=== PATIENT | female | born 1955 | race Caucasian/White ===

== ENCOUNTER → 2016-08-11 | Outpatient (REF) | payer OTHER ==
[2016-08-11 18:27] LABS: ALBUMIN 4.1 GM/DL (3.2-5.2); ALBUMIN/GLOBULIN RATIO 1.41 (1.00-1.93); ALKALINE PHOSPHATASE 56 U/L (45-117); ALT/SGPT 29 U/L (12-78); ANION GAP 6 MEQ/L (8-16); AST/SGOT 25 U/L (15-37); BILIRUBIN,TOTAL 0.3 MG/DL (0.2-1.0); BLOOD UREA NITROGEN 20 MG/DL (7-18); CALCIUM LEVEL 9.6 MG/DL (8.8-10.2); CARBON DIOXIDE LEVEL 35 MEQ/L (21-32); CHLORIDE LEVEL 102 MEQ/L (98-107); CREATININE FOR GFR 0.85 MG/DL (0.55-1.02); GLOMERULAR FILTRATION RATE > 60.0 (>45); GLUCOSE, FASTING 88 MG/DL (80-110); POTASSIUM SERUM 3.5 MEQ/L (3.5-5.1); SODIUM LEVEL 143 MEQ/L (136-145)
== END ==
LOC: M SFHCPLAZ 15:34
PROVIDERS: ATTEND Family Medicine
DX: E78.2 Mixed hyperlipidemia (principal); I10 Essential (primary) hypertension; R73.01 Impaired fasting glucose

== ENCOUNTER → 2016-12-22 | Outpatient (REF) | payer OTHER ==
[2016-12-22 17:26] LABS: ALBUMIN 4.1 GM/DL (3.2-5.2); ALBUMIN/GLOBULIN RATIO 1.32 (1.00-1.93); ALKALINE PHOSPHATASE 60 U/L (45-117); ALT/SGPT 34 U/L (12-78); ANION GAP 8 MEQ/L (8-16); AST/SGOT 33 U/L (15-37); BILIRUBIN,TOTAL 0.3 MG/DL (0.2-1.0); BLOOD UREA NITROGEN 22 MG/DL (7-18); CALCIUM LEVEL 9.7 MG/DL (8.8-10.2); CARBON DIOXIDE LEVEL 32 MEQ/L (21-32); CHLORIDE LEVEL 100 MEQ/L (98-107); CHOLESTEROL LEVEL 208 MG/DL (<200); GLOMERULAR FILTRATION RATE > 60.0 (>45); GLUCOSE, FASTING 81 MG/DL (80-110); MAGNESIUM LEVEL 2.1 MG/DL (1.8-2.4); POTASSIUM SERUM 3.4 MEQ/L (3.5-5.1); SODIUM LEVEL 140 MEQ/L (136-145); TOTAL PROTEIN 7.2 GM/DL (6.4-8.2); TRIGLYCERIDES LEVEL 282 MG/DL (<150)
== END ==
LOC: M LABDRAW1 16:19
PROVIDERS: ATTEND Family Medicine
DX: E78.2 Mixed hyperlipidemia (principal); R73.01 Impaired fasting glucose

== ENCOUNTER → 2017-01-09 | Outpatient (CLI) | payer OTHER | LOC: M WHC 14:52 | PROVIDERS: ATTEND Family Medicine | DX: Z12.31 Encounter for screening mammogram for malignant neoplasm of breast (principal) ==

== ENCOUNTER → 2017-03-20 | Outpatient (CLI) | payer OTHER ==
[~2017-03-20] MED LIST: ALEN70TA39 PO; HYDR25TAB PO; METO50TA7 PO; NAPR500T PO; SIMV40TA2 PO
--- NOTE | 2017-03-20 20:50 | REP ---
Clinical: Plantar fascial fibromatosis and pain. Technique: AP, lateral, bilateral oblique views left foot. Findings: Mild/moderate osteopenia and age-related changes are appreciated. The osseous structures and joint spaces are intact and otherwise normal. There is no evidence for acute fracture or dislocation. Surrounding soft tissues are unremarkable. No soft tissue calcifications are appreciated. Lateral view without evidence for plantar swelling or obvious abnormality by radiographic evaluation. No subcutaneous emphysema or radiodense foreign body. Impression: Osteopenia and age-related changes. No acute fracture or dislocation. Signed by Berto Javier MD 03/20/2017 08:41 P
== END ==
LOC: M RAD 03-17 14:45
PROVIDERS: ATTEND Family Medicine
DX: M72.2 Plantar fascial fibromatosis (principal); M85.80 Other specified disorders of bone density and structure, unspecified site

== ENCOUNTER 2017-04-20 14:29 | Outpatient (RCR) | payer OTHER | END 2017-04-22 | LOC: M PT 14:29 | PROVIDERS: ATTEND Family Medicine | DX: Z51.89 Encounter for other specified aftercare (principal); M72.2 Plantar fascial fibromatosis ==

== ENCOUNTER 2017-04-26 14:33 | Outpatient (RCR) | payer OTHER ==
[2017-05-07] MEDS ORDERED: SIMV40TA2 PO (09:07)
[2017-05-07] MEDS ORDERED: HYDR25TAB PO (09:07)
[2017-05-07] MEDS ORDERED: METO50TA7 PO (09:07)
[2017-05-07] MEDS ORDERED: ALEN70TA39 PO (09:07)
[2017-05-07] MEDS ORDERED: NAPR500T PO (12:30)
== END 2017-05-23 ==
LOC: M PT 14:33
PROVIDERS: ATTEND Family Medicine
DX: Z51.89 Encounter for other specified aftercare (principal); M72.2 Plantar fascial fibromatosis

== ENCOUNTER 2017-05-07 09:00 | Emergency (ER) | payer OTHER ==
[~2017-05-07] VITALS: Ht 152.4 cm; Wt 64.5 kg
[2017-05-07] MEDS ORDERED: HYDR25TAB PO (09:07)
[2017-05-07] MEDS ORDERED: ALEN70TA39 PO (09:07)
[2017-05-07] MEDS ORDERED: SIMV40TA2 PO (09:07)
[2017-05-07] MEDS ORDERED: METO50TA7 PO (09:07)
--- NOTE | 2017-05-07 11:32 | REP ---
Right foot series: Four views. History: Fourth and fifth metatarsal pain 1 day after an injury. Findings: There is diffuse osteopenia. There is no visible fracture. Mild dorsal soft tissue swelling of the forefoot is seen. Achilles and plantar calcaneal spurs are noted. Impression: Mild soft tissue swelling. No fracture seen. Signed by Fish Reinoso MD 05/07/2017 01:22 P
[2017-05-07] MEDS ORDERED: NAPR500T PO (12:30)
[2017-05-07 12:34] VITALS: BP 178/87
[2017-05-07] MEDS: NAPROXEN 250 MG TAB PO ONE (12:43)
== END 2017-05-07 12:46 | disposition home or self-care (01) ==
LOC: M ED 09:00
DX: S90.31XA Contusion of right foot, initial encounter (principal); X50.1XXA Overexertion from prolonged static or awkward postures, initial encounter; Y92.099 Unspecified place in other non-institutional residence as the place of occurrence of the external cause; Y93.01 Activity, walking, marching and hiking; Y99.9 Unspecified external cause status

== ENCOUNTER → 2017-05-10 | Outpatient (CLI) | payer OTHER ==
--- NOTE | 2017-05-15 17:42 | SLEEPHOME ---
DATE OF PROCEDURE: 05/10/2017 Diagnostic home sleep testing was performed due to concern for the obstructive sleep apnea syndrome in this patient with a history of hypertension. 4 hours and 9 minutes of data were reviewed. There were 4 hours and 7 minutes marked as time in bed. During the interval marked time in bed there were 25 respiratory events identified of 10 seconds in duration or greater for a respiratory event index of 6. The events were primary obstructive. Baseline pulse rate was 59 beats per minutes. Pulse rate ranged as high as 124 beats per minute. Baseline oxygen saturation was 93%. Lowest oxygen saturation recorded was 83%. Testing was performed in both the supine and non-supine positions. IMPRESSION: Abnormal home sleep testing with repetitive respiratory events and oxygen desaturations to 83% with a respiratory event index of 6 which is consistent with the obstructive sleep apnea syndrome. RECOMMENDATIONS: Patient should be referred for formal sleep evaluation and in laboratory pressure titration.
== END ==
LOC: M SLEEP 14:35
PROVIDERS: ATTEND Family Medicine
DX: G47.10 Hypersomnia, unspecified (principal)

== ENCOUNTER 2017-10-16 22:15 | Emergency (ER) | payer OTHER ==
[2017-10-16 23:25] LABS: BASO % 0.4 % (0.0-1.0); EOS # 0.2 10^3/uL (0.0-0.50); EOS % 2.6 % (0.0-3.0); HEMATOCRIT 40.8 % (36.0-47.0); IMMATURE GRANULOCYTE % 0.1 % (0-3.0); LYMPH # 1.8 10^3/uL (1.5-4.5); LYMPH % 23.6 % (24.0-44.0); MEAN CORPUSCULAR HEMOGLOBIN 29.2 pg (27.0-33.0); MEAN CORPUSCULAR HGB CONC 34.3 g/dl (32.0-36.5); MONO # 0.8 10^3/uL (0.0-0.8); MONO % 10.5 % (0.0-5.0); NEUTROPHILS # 4.8 10^3/uL (1.8-7.7); NEUTROPHILS % 62.8 % (36.0-66.0); PLATELET COUNT, AUTOMATED 232 10^3/uL (150-450); RED CELL DISTRIBUTION WIDTH 12.4 % (11.5-14.5); WHITE BLOOD COUNT 7.6 10^3/uL (4.0-10.0)
[2017-10-16 23:39] LABS: ANION GAP 6 MEQ/L (8-16); BLOOD UREA NITROGEN 13 MG/DL (7-18); CALCIUM LEVEL 9.3 MG/DL (8.8-10.2); CARBON DIOXIDE LEVEL 33 MEQ/L (21-32); CHLORIDE LEVEL 104 MEQ/L (98-107); CK-MB VALUE MASS 7.3 NG/ML (<3.6); CPK CREATINE PHOSPHOKINASE 314 U/L (26-192); CREATININE FOR GFR 0.69 MG/DL (0.55-1.30); GLOMERULAR FILTRATION RATE > 60.0 (>45); GLUCOSE, FASTING 108 MG/DL (70-100); MB/CK RELATIVE INDEX 2.32 (< OR =4); POTASSIUM SERUM 3.2 MEQ/L (3.5-5.1); SODIUM LEVEL 143 MEQ/L (136-145); TROPONIN I 0.03 NG/ML (< 0.10)
[2017-10-16] MEDS: NS 500 ML IV (23:48)
[2017-10-17] MEDS: NS 500 ML IV (00:15)
[2017-10-17] MEDS: POTASSIUM CHLORIDE 10 MEQ SR TABLET PO (01:46)
== END 2017-10-17 02:36 | disposition home or self-care (01) ==
LOC: M ED 10-17 02:36
DX: I95.1 Orthostatic hypotension (principal); E87.6 Hypokalemia; I44.7 Left bundle-branch block, unspecified; I10 Essential (primary) hypertension; E78.5 Hyperlipidemia, unspecified; F41.9 Anxiety disorder, unspecified; K58.9 Irritable bowel syndrome, unspecified; Z79.899 Other long term (current) drug therapy; Z88.5 Allergy status to narcotic agent
CPT/HCPCS: 70450

== ENCOUNTER 2017-12-16 08:20 | Emergency (ER) | payer OTHER ==
[2017-12-16] MEDS: ACETAMINOPHEN TAB 650MG DOSE (2X325MG) PO (10:05)
== END 2017-12-16 10:10 | disposition home or self-care (01) ==
LOC: M ED 08:20
DX: R07.89 Other chest pain (principal); G89.29 Other chronic pain; G47.00 Insomnia, unspecified; I44.7 Left bundle-branch block, unspecified; R00.1 Bradycardia, unspecified; I10 Essential (primary) hypertension; E78.9 Disorder of lipoprotein metabolism, unspecified; K58.9 Irritable bowel syndrome, unspecified; F41.9 Anxiety disorder, unspecified; G47.33 Obstructive sleep apnea (adult) (pediatric); Z88.5 Allergy status to narcotic agent; Z79.899 Other long term (current) drug therapy; Z79.82 Long term (current) use of aspirin
CPT/HCPCS: 93005

== ENCOUNTER → 2018-01-04 | Outpatient (REF) | payer OTHER ==
[2018-01-04 12:03] LABS: ALBUMIN/GLOBULIN RATIO 1.25 (1.00-1.93); ALKALINE PHOSPHATASE 82 U/L (45-117); ALT/SGPT 31 U/L (12-78); ANION GAP 6 MEQ/L (8-16); AST/SGOT 24 U/L (7-37); BILIRUBIN,TOTAL 0.5 MG/DL (0.2-1.0); BLOOD UREA NITROGEN 15 MG/DL (7-18); CALCIUM LEVEL 9.5 MG/DL (8.8-10.2); CARBON DIOXIDE LEVEL 33 MEQ/L (21-32); CHLORIDE LEVEL 107 MEQ/L (98-107); CHOLESTEROL LEVEL 172 MG/DL (<200); CHOLESTEROL RISK RATIO 3.583 (<5); CREATININE FOR GFR 0.66 MG/DL (0.55-1.30); GLOMERULAR FILTRATION RATE > 60.0 (>45); GLUCOSE, FASTING 76 MG/DL (70-100); HDL CHOLESTEROL 48 MG/DL (>40); LDL CHOLESTEROL 71.6 MG/DL (<100); MAGNESIUM LEVEL 2.2 MG/DL (1.8-2.4); NON-HDL-C 124 MG/DL; POTASSIUM SERUM 4.2 MEQ/L (3.5-5.1); SODIUM LEVEL 146 MEQ/L (136-145); TOTAL PROTEIN 7.2 GM/DL (6.4-8.2); TRIGLYCERIDES LEVEL 262 MG/DL (<150)
[2018-01-04 13:08] LABS: ESTIMATED AVERAGE GLUCOSE 114 MG/DL (60-110); HEMOGLOBIN A1c 5.6 %
[2018-01-06 14:10] LABS: INSULIN LEVEL 14.6 uIU/mL (2.6-24.9)
== END ==
LOC: M SFHCPLAZ 08:24
DX: E78.2 Mixed hyperlipidemia (principal); R73.01 Impaired fasting glucose
CPT/HCPCS: 83525

== ENCOUNTER → 2018-01-10 | Outpatient (CLI) | payer OTHER | LOC: M WHC 13:28 | DX: Z12.31 Encounter for screening mammogram for malignant neoplasm of breast (principal) | CPT/HCPCS: 77067 ==

== ENCOUNTER → 2018-03-06 | Outpatient (REF) | payer OTHER ==
[2018-03-06 16:08] LABS: BASO % 0.5 % (0.0-1.0); EOS # 0.2 10^3/uL (0.0-0.50); EOS % 3.6 % (0.0-3.0); HEMATOCRIT 41.6 % (36.0-47.0); HEMOGLOBIN 13.8 g/dl (12.0-15.5); IMMATURE GRANULOCYTE % 0.3 % (0-3.0); LYMPH # 1.5 10^3/uL (1.5-4.5); LYMPH % 25.1 % (24.0-44.0); MEAN CORPUSCULAR HEMOGLOBIN 30.3 pg (27.0-33.0); MEAN CORPUSCULAR HGB CONC 33.2 g/dl (32.0-36.5); MEAN CORPUSCULAR VOLUME 91.2 fl (80.0-96.0); MONO # 0.5 10^3/uL (0.0-0.8); MONO % 8.1 % (0.0-5.0); NEUTROPHILS # 3.7 10^3/uL (1.8-7.7); NEUTROPHILS % 62.4 % (36.0-66.0); PLATELET COUNT, AUTOMATED 329 10^3/uL (150-450); RED BLOOD COUNT 4.56 10^6/uL (4.00-5.40); RED CELL DISTRIBUTION WIDTH 12.2 % (11.5-14.5); WHITE BLOOD COUNT 5.9 10^3/uL (4.0-10.0)
[2018-03-06 16:23] LABS: INR 1.03; PROTHROMBIN TIME 13.6 SECONDS (12.1-14.4)
[2018-03-06 16:24] LABS: PARTIAL THROMBOPLASTIN TIME 34.3 SECONDS (25.4-37.6)
[2018-03-06 16:34] LABS: ALBUMIN 3.8 GM/DL (3.2-5.2); ALBUMIN/GLOBULIN RATIO 1.19 (1.00-1.93); ALKALINE PHOSPHATASE 78 U/L (45-117); ALT/SGPT 32 U/L (12-78); ANION GAP 5 MEQ/L (8-16); AST/SGOT 23 U/L (7-37); BILIRUBIN,TOTAL 0.4 MG/DL (0.2-1.0); BLOOD UREA NITROGEN 13 MG/DL (7-18); CALCIUM LEVEL 9.4 MG/DL (8.8-10.2); CARBON DIOXIDE LEVEL 32 MEQ/L (21-32); CHLORIDE LEVEL 108 MEQ/L (98-107); CREATININE FOR GFR 0.78 MG/DL (0.55-1.30); GLOMERULAR FILTRATION RATE > 60.0 (>45); GLUCOSE, FASTING 105 MG/DL (70-100); POTASSIUM SERUM 4.1 MEQ/L (3.5-5.1); SODIUM LEVEL 145 MEQ/L (136-145)
== END ==
LOC: M SFHCPLAZ 14:16
DX: Z01.818 Encounter for other preprocedural examination (principal)

== ENCOUNTER 2018-03-13 08:25 | Day surgery (SDC) | payer OTHER ==
[~2018-03-13 08:25] MED LIST changes: +ACETAMINOPHEN 325 MG TAB PO; -ALEN70TA39 PO; -HYDR25TAB PO; +LIDOCAINE 3.5 % 1ML OPHTH TOPICAL GEL OU; -METO50TA7 PO; -NAPR500T PO; +PHENYLEPHRINE HCL 10 % OPHTH. SOL 5ML OD; -SIMV40TA2 PO
[2018-03-13] MEDS: CYCLOPENTOLATE 2% OPHTH SOLN 2ML BTL OD (08:59)
[2018-03-13] MEDS: TROPICAMIDE 1% OPHTH SOLN 2ML OD (08:59)
[2018-03-13] MEDS: PHENYLEPHRINE 2.5% OPHTH SOL 2ML OD (08:59)
[2018-03-13] MEDS: OFLOXACIN 0.3 % (OCUFLOX) OPTH SOL 5ML OD (09:00)
[2018-03-13] MEDS ORDERED: fentaNYL 100 MCG/2 ML INJECTION (J3010) As Ordered (10:22)
[2018-03-13] MEDS ORDERED: MIDAZOLAM INJ 2 MG/2 ML VIAL (J2250) As Ordered (10:22)
[2018-03-13] MEDS: POVIDONE-IODINE 5% OPHTH PREP SOL 30ML As Ordered (10:24)
[2018-03-13] MEDS: LIDOCAINE 1% SDV 5 ML VIAL As Ordered (10:24)
[2018-03-13] MEDS: HEALON DUET (HEALON 10MG/ML 0.55ML & HEALON ENDOCOAT 30MG/ML 0.85ML) As Ordered (10:24)
[2018-03-13] MEDS: CEFUROXIME 1MG/0.1ML INTRACAMERAL INJ As Ordered (10:25)
[2018-03-13] MEDS: BSS with VANC/TOB/EPI for EYE CASES IR (10:25)
[2018-03-13] MEDS: MOXIFLOXACIN IN BSS 0.25MG/0.25ML INTRACAMERAL INJ (OR EYE ONLY)(J2280) As Ordered (10:25)
[2018-03-13] MEDS: TRIAMCINOLONE PRES FR 40 MG/ML 1ML(TRIESENCE)(OR EYE ONLY)(J3300 PER 1MG) As Ordered (10:25)
[2018-03-13] MEDS ORDERED: AcetaZOLAMIDE 500 MG ER CAP As Ordered (10:48)
[2018-03-13] MEDS: AcetaZOLAMIDE 500 MG ER CAP PO (10:50)
[2018-03-13] MEDS ORDERED: TRIMETHOBENZAMIDE 300 MG CAP PO (11:00)
== END 2018-03-13 11:32 | disposition home or self-care (01) ==
LOC: M SDC 08:25
DX: H26.9 Unspecified cataract (principal); I10 Essential (primary) hypertension; E78.00 Pure hypercholesterolemia, unspecified; L40.8 Other psoriasis; G47.30 Sleep apnea, unspecified; M81.0 Age-related osteoporosis without current pathological fracture
CPT/HCPCS: 66984

== ENCOUNTER 2018-07-19 13:44 | Emergency (ER) | payer OTHER ==
[~2018-07-19] VITALS: Ht 149.9 cm; Wt 64.5 kg
[~2018-07-19 13:44] MED LIST changes: -ACETAMINOPHEN 325 MG TAB PO; +ALEN70TA57 PO; +AMLO2.5T2 PO; +ASPI81TA85 PO; +ATOR40TA75 PO; +CALC600T60 PO; +CARV12.5 PO; +HYDR25TAB PO; -LIDOCAINE 3.5 % 1ML OPHTH TOPICAL GEL OU; +METO50TA7 PO; +MULT1CHW39 PO; +NAPR-49 PO; -PHENYLEPHRINE HCL 10 % OPHTH. SOL 5ML OD; +SIMV40TA2 PO; +VITA200016 PO
[2018-07-19] MEDS ORDERED: ACETAMINOPHEN 325 MG TAB PO ONE (14:30)
--- NOTE | 2018-07-19 14:46 | REP ---
Clinical: Acute headache. Comparison: 10/16/2017 . Findings: Age-related atrophy and microvascular ischemic changes are appreciated. The ventricles and sulci are symmetric. Shields-white differentiation is maintained. There is no evidence for acute intracranial hemorrhage, mass/mass effect, pathology or infarction. No extra-axial fluid collection. Calvarium is intact. Paranasal sinuses and mastoid air cells are clear. Impression: Age related atrophy and microvascular ischemic changes. No acute intracranial hemorrhage, infarction, or mass/mass effect. Electronically Signed by Berto Javier MD 07/19/2018 02:37 P
[2018-07-19 14:56] LABS: BILIRUBIN, URINE MANUAL NEGATIVE (NEGATIVE); GLUCOSE, URINE (UA) MANUAL NEGATIVE (NEGATIVE); KETONE, URINE MANUAL NEGATIVE (NEGATIVE); UROBILINOGEN, URINE MANUAL NORMAL (NORMAL)
[2018-07-19 15:09] LABS: BASO % 0.5 % (0.0-1.0); EOS # 0.2 10^3/uL (0.0-0.50); EOS % 3.3 % (0.0-3.0); HEMOGLOBIN 14.4 g/dl (12.0-15.5); LYMPH # 1.5 10^3/uL (1.5-4.5); LYMPH % 23.1 % (24.0-44.0); MEAN CORPUSCULAR HEMOGLOBIN 30.1 pg (27.0-33.0); MEAN CORPUSCULAR HGB CONC 33.5 g/dl (32.0-36.5); MONO # 0.6 10^3/uL (0.0-0.8); MONO % 8.9 % (0.0-5.0); NEUTROPHILS # 4.1 10^3/uL (1.8-7.7); NEUTROPHILS % 63.9 % (36.0-66.0); PLATELET COUNT, AUTOMATED 270 10^3/uL (150-450); RED BLOOD COUNT 4.78 10^6/uL (4.00-5.40); WHITE BLOOD COUNT 6.4 10^3/uL (4.0-10.0)
[2018-07-19 15:43] LABS: BLOOD UREA NITROGEN 19 MG/DL (7-18); CALCIUM LEVEL 9.4 MG/DL (8.8-10.2); CARBON DIOXIDE LEVEL 30 MEQ/L (21-32); CHLORIDE LEVEL 104 MEQ/L (98-107); GLOMERULAR FILTRATION RATE > 60.0 (>45); GLUCOSE, FASTING 98 MG/DL (70-100); POTASSIUM SERUM 3.9 MEQ/L (3.5-5.1); SODIUM LEVEL 141 MEQ/L (136-145)
[2018-07-19 16:25] VITALS: BP 136/66
== END 2018-07-19 16:29 | disposition home or self-care (01) ==
LOC: M ED 13:44
DX: R51 Headache (principal); Z88.5 Allergy status to narcotic agent; Z79.899 Other long term (current) drug therapy; Z79.82 Long term (current) use of aspirin

== ENCOUNTER → 2018-10-10 | Outpatient (CLI) | payer MEDICARE ==
[~2018-10-10] MED LIST changes: -AMLO2.5T2 PO; +AMLO2.5T3 PO; -NAPR-49 PO; +NAPR-50 PO
--- NOTE | 2018-10-11 01:37 | REP ---
Clinical: Medial knee pain. Technique: AP, lateral, bilateral oblique and sunrise views right knee. Findings: The osseous structures and joint spaces are intact and normal. There is no evidence for acute fracture or dislocation. No joint effusion is appreciated. Surrounding soft tissues are unremarkable. No subcutaneous emphysema or radiodense foreign body. Impression: Age-appropriate right knee radiograph series. No acute fracture or dislocation. Electronically Signed by Berto Javier MD 10/11/2018 01:28 A
== END ==
LOC: M WUC 15:21
PROVIDERS: ATTEND Physician Assistant
DX: M25.561 Pain in right knee (principal)

== ENCOUNTER → 2019-01-22 | Outpatient (REF) | payer MEDICARE ==
[~2019-01-22] MED LIST changes: -ALEN70TA57 PO; +ALEN70TA74 PO; +DONE5TAB82 PO; -MULT1CHW39 PO; +MULT200T7 PO; -NAPR-50 PO; +NAPR-837 PO; -SIMV40TA2 PO; +SIMV40TA20 PO
[2019-01-22 13:51] LABS: BASO % 0.6 % (0.0-1.0); EOS # 0.2 10^3/uL (0.0-0.50); HEMATOCRIT 42.8 % (36.0-47.0); HEMOGLOBIN 14.6 g/dl (12.0-15.5); LYMPH # 1.1 10^3/uL (1.5-4.5); MEAN CORPUSCULAR HEMOGLOBIN 30.7 pg (27.0-33.0); MEAN CORPUSCULAR HGB CONC 34.1 g/dl (32.0-36.5); MEAN CORPUSCULAR VOLUME 90.1 fl (80.0-96.0); MONO # 0.5 10^3/uL (0.0-0.8); MONO % 9.6 % (0.0-5.0); NEUTROPHILS # 3.2 10^3/uL (1.8-7.7); NEUTROPHILS % 64.4 % (36.0-66.0); PLATELET COUNT, AUTOMATED 287 10^3/uL (150-450); RED BLOOD COUNT 4.75 10^6/uL (4.00-5.40)
[2019-01-22 14:09] LABS: ERYTHROCYTE SEDIMENTATION RATE 16 mm/hr (0-30)
[2019-01-22 14:29] LABS: PTT LUPUS TYPE ANTICOAG SCREEN 0.9 (0-1.2)
[2019-01-22 14:30] LABS: BLOOD UREA NITROGEN 17 MG/DL (7-18); CALCIUM LEVEL 9.4 MG/DL (8.8-10.2); CARBON DIOXIDE LEVEL 29 MEQ/L (21-32); CHLORIDE LEVEL 105 MEQ/L (98-107); GLOMERULAR FILTRATION RATE > 60.0 (>45); GLUCOSE, FASTING 90 MG/DL (70-100); SODIUM LEVEL 139 MEQ/L (136-145)
[2019-01-22 14:31] LABS: ALT/SGPT 32 U/L (12-78); BILIRUBIN,TOTAL 0.5 MG/DL (0.2-1.0); FOLATE > 24.0 NG/ML (>5.4); RHEUMATOID FACTOR QUANT < 10.0 IU/ML (<15.0); TOTAL PROTEIN 7.2 GM/DL (6.4-8.2); VITAMIN B12 LEVEL 764 PG/ML (247-911)
[2019-01-30 11:14] LABS: ALBUMIN % 60.9 % (55.8-66.1)
[2019-01-30 11:15] LABS: ALBUMIN 4.38 GM/DL (3.29-5.55); ALPHA-1-GLOBULIN % 4.6 % (2.9-4.9); ALPHA-1-GLOBULINS 0.33 GM/DL (0.17-0.41); ALPHA-2-GLOBULINS % 12.5 % (7.1-11.8); BETA-1-GLOBULINS 0.51 GM/DL (0.28-0.60); BETA-1-GLOBULINS % 7.1 % (4.7-7.2); BETA-2-GLOBULINS 0.32 GM/DL (0.19-0.55); BETA-2-GLOBULINS % 4.4 % (3.2-6.5); GAMMA GLOBULIN % 10.5 % (11.1-18.8); GAMMA GLOBULINS 0.76 GM/DL (0.65-1.58)
[2019-01-30 14:29] LABS: ANGIOTENSIN 1 CONVERTING ENZYM 34 U/L (14-82); ANTI DS-DNA AB <1:10 titer (.); ANTINUCLEAR ANTIBODIES DIRECT Negative (Negative); CERULOPLASMIN 27.5 mg/dL (19.0-39.0); COPPER PLASMA 115 ug/dL (72-166); LEAD BLOOD ADULT <1 ug/dL (0-4); Lyme Disease IgG/IgM Antibodie <0.91 ISR (0.00-0.90); Lyme Disease IgM Ab Quantitati <0.80 index (0.00-0.79); MERCURY LEVEL None Detected ug/L (0.0-14.9); SJOGREN'S ANTI SS-A <0.2 AI (0.0-0.9); SJOGREN'S ANTI SS-B <0.2 AI (0.0-0.9); VITAMIN B1 LEVEL WHOLE BLOOD 133.5 nmol/L (66.5-200.0); VITAMIN B6,PYRIDOXAL PHOSPHATE 50.7 ug/L (2.0-32.8); VITAMIN E(ALPHA TOCOPHEROL) 13.6 mg/L (9.0-29.0); VITAMIN E(GAMMA TOCOPHEROL) 1.8 mg/L (0.5-4.9)
== END ==
LOC: M LABNEURO 10:06
PROVIDERS: ATTEND Psychiatry & Neurology Neurology
DX: G31.84 Mild cognitive impairment of uncertain or unknown etiology (principal); Z79.82 Long term (current) use of aspirin; Z79.899 Other long term (current) drug therapy

== ENCOUNTER → 2019-03-01 | Outpatient (REF) | payer MEDICARE ==
[~2019-03-01] MED LIST changes: -DONE5TAB82 PO; +SIMV40TA2 PO; -SIMV40TA20 PO
== END ==
LOC: M LAB REF 12:26
PROVIDERS: ATTEND Physician Assistant
DX: R30.0 Dysuria (principal)

== ENCOUNTER 2019-05-05 13:35 | Emergency (ER) | payer MEDICARE ==
[~2019-05-05] VITALS: Ht 149.9 cm; Wt 62.0 kg
[2019-05-05] MEDS ORDERED: DONE5TAB82 PO (13:47)
[2019-05-05] MEDS ORDERED: ACETAMINOPHEN TAB 650MG DOSE (2X325MG) PO ONE (14:45)
[2019-05-05 15:00] LABS: BASO % 0.4 % (0.0-1.0); EOS # 0.1 10^3/uL (0.0-0.5); EOS % 1.2 % (0.0-3.0); HEMATOCRIT 42.7 % (36.0-47.0); HEMOGLOBIN 14.3 g/dl (12.0-15.5); LYMPH # 0.9 10^3/uL (1.5-5.0); LYMPH % 12.3 % (24.0-44.0); MEAN CORPUSCULAR HEMOGLOBIN 30.4 pg (27.0-33.0); MEAN CORPUSCULAR HGB CONC 33.5 g/dl (32.0-36.5); MEAN CORPUSCULAR VOLUME 90.7 fl (80.0-96.0); MONO # 0.4 10^3/uL (0.0-0.8); MONO % 4.6 % (0.0-5.0); NEUTROPHILS # 6.2 10^3/uL (1.5-8.5); NEUTROPHILS % 81.1 % (36.0-66.0); PLATELET COUNT, AUTOMATED 343 10^3/uL (150-450); RED BLOOD COUNT 4.71 10^6/uL (4.00-5.40); WHITE BLOOD COUNT 7.6 10^3/uL (4.0-10.0)
[2019-05-05 15:25] LABS: BLOOD UREA NITROGEN 12 MG/DL (7-18); CALCIUM LEVEL 9.5 MG/DL (8.8-10.2); CARBON DIOXIDE LEVEL 31 MEQ/L (21-32); CHLORIDE LEVEL 106 MEQ/L (98-107); GLOMERULAR FILTRATION RATE > 60.0 (>45); GLUCOSE, FASTING 111 MG/DL (70-100); POTASSIUM SERUM 4.2 MEQ/L (3.5-5.1); SODIUM LEVEL 143 MEQ/L (136-145)
[2019-05-05 16:56] VITALS: BP 162/84
--- NOTE | 2019-05-06 06:52 | REP ---
REASON FOR EXAM: Headache. COMPARISON: 07/19/2018 There is no significant change from the prior exam. The ventricles and sulci are within normal limits and unchanged. There is no evidence of an acute intracranial hemorrhagic or nonhemorrhagic event. There is no shift of the midline structures. Once again, there is mild patchy diffuse lucency throughout the deep cerebral white matter status quo. There is no change in the appearance of the skull or imaged paranasal sinuses. IMPRESSION: There is no evidence of acute intracranial pathology or significant change compared to the prior exam 07/19/2018. Mild age-related changes status quo. Electronically Signed by Tyrone Henderson DO 05/06/2019 12:45 P
== END 2019-05-05 17:15 | disposition home or self-care (01) ==
LOC: M ED 13:35
DX: R51 Headache (principal); I10 Essential (primary) hypertension; E78.5 Hyperlipidemia, unspecified; F03.90 Unspecified dementia, unspecified severity, without behavioral disturbance, psychotic disturbance, mood disturbance, and anxiety; G47.30 Sleep apnea, unspecified; M81.0 Age-related osteoporosis without current pathological fracture; Z82.3 Family history of stroke; Z79.82 Long term (current) use of aspirin; Z79.899 Other long term (current) drug therapy; Z88.5 Allergy status to narcotic agent

== ENCOUNTER → 2020-04-28 | Outpatient (CLI) | payer MEDICARE ==
[~2020-04-28] MED LIST changes: -ASPI81TA85 PO; +ASPI81TA86 PO; +DONE5TAB82 PO; -SIMV40TA2 PO; +SIMV40TA20 PO
[2020-04-28 11:25] LABS: HEMATOCRIT 41.7 % (36.0-47.0); HEMOGLOBIN 13.3 g/dl (12.0-15.5); MEAN CORPUSCULAR HEMOGLOBIN 28.5 pg (27.0-33.0); MEAN CORPUSCULAR HGB CONC 31.9 g/dl (32.0-36.5); MEAN CORPUSCULAR VOLUME 89.3 fl (80.0-96.0); PLATELET COUNT, AUTOMATED 210 10^3/uL (150-450); RED BLOOD COUNT 4.67 10^6/uL (4.00-5.40); WHITE BLOOD COUNT 4.9 10^3/uL (4.0-10.0)
[2020-04-28 11:46] LABS: ALT/SGPT 33 U/L (12-78); BILIRUBIN,TOTAL 0.8 MG/DL (0.2-1.0); BLOOD UREA NITROGEN 19 MG/DL (7-18); CALCIUM LEVEL 10.2 MG/DL (8.8-10.2); CARBON DIOXIDE LEVEL 33 MEQ/L (21-32); CHLORIDE LEVEL 104 MEQ/L (98-107); CHOLESTEROL LEVEL 176 MG/DL (<200); CREATININE FOR GFR 0.81 MG/DL (0.55-1.30); GLOMERULAR FILTRATION RATE > 60.0 (>45); GLUCOSE, FASTING 97 MG/DL (70-100); HDL CHOLESTEROL 42 MG/DL (>40); LDL CHOLESTEROL 96 MG/DL (<100); NON-HDL-C 134 MG/DL; POTASSIUM SERUM 3.8 MEQ/L (3.5-5.1); SODIUM LEVEL 142 MEQ/L (136-145); TOTAL PROTEIN 7.2 GM/DL (6.4-8.2); TRIGLYCERIDES LEVEL 189 MG/DL (<150)
== END ==
LOC: M WUC 08:12
PROVIDERS: ATTEND Family Medicine
DX: M81.0 Age-related osteoporosis without current pathological fracture (principal); I10 Essential (primary) hypertension

== ENCOUNTER → 2020-06-09 | Outpatient (CLI) | payer MEDICARE ==
--- NOTE | 2020-06-09 15:35 | REPMRS ---
Patient History The patient states she has not had a clinical breast exam in over a year. No known family history of cancer. No Hormone Replacement Therapy 3D TOMOSYNTHESIS WAS PERFORMED. [facility] for [facility] 4.8%. Volpara breast density b. Digital Woman Screen Mammo: June 09, 2020 - Exam #: [id number] Bilateral CC and MLO view(s) were taken. Technologist: Katie Gillette, Technologist Prior study comparison: January 10, 2018, bilateral digital woman screen mammo performed at [facility]. January 09, 2017, digital woman screen mammo performed at [facility]. FINDINGS: There are scattered fibroglandular densities. There has been no change in the appearance of the mammogram from the prior studies. There is a mild amount of residual fibroglandular tissue which is fairly symmetric. There is no interval development of dominant mass, architectural distortion, or clustered microcalcification suggestive of malignancy. Assessment: BI-RADS/ACR category 1 mammogram. Negative Mammogram. Recommendation Routine screening mammogram in 1 year (for women over age 40). This mammogram was interpreted with the aid of an FDA-approved computer-aided dectection system. Electronically Signed By: Giuliano Shields MD 06/09/20 [id number]
== END ==
LOC: M WHC 08:11
PROVIDERS: ATTEND Family Medicine
DX: Z01.419 Encounter for gynecological examination (general) (routine) without abnormal findings (principal); Z12.31 Encounter for screening mammogram for malignant neoplasm of breast
CPT/HCPCS: 77063; 77067; G0101

== ENCOUNTER 2020-06-20 11:47 | Emergency (ER) | payer MEDICARE ==
[~2020-06-20] VITALS: Ht 149.9 cm; Wt 63.3 kg
[2020-06-20] MEDS ORDERED: METOCLOPRAMIDE INJ 10MG/2ML VIAL (J2765 PER 1) IV ONE (12:30)
[2020-06-20] MEDS: METOPROLOL 5 MG/5 ML VIAL IV SCH ×2 (12:40→12:46)
[2020-06-20 12:55] LABS: BASO % 0.5 % (0.0-1.0); EOS # 0.1 10^3/uL (0.0-0.5); EOS % 1.8 % (0.0-3.0); HEMATOCRIT 44.5 % (36.0-47.0); HEMOGLOBIN 14.2 g/dl (12.0-15.5); LYMPH # 1.1 10^3/uL (1.5-5.0); LYMPH % 19.7 % (24.0-44.0); MEAN CORPUSCULAR HEMOGLOBIN 28.5 pg (27.0-33.0); MEAN CORPUSCULAR HGB CONC 31.9 g/dl (32.0-36.5); MEAN CORPUSCULAR VOLUME 89.2 fl (80.0-96.0); MONO # 0.4 10^3/uL (0.0-0.8); MONO % 7.6 % (0.0-5.0); NEUTROPHILS % 69.9 % (36.0-66.0); PLATELET COUNT, AUTOMATED 283 10^3/uL (150-450); RED BLOOD COUNT 4.99 10^6/uL (4.00-5.40); WHITE BLOOD COUNT 5.7 10^3/uL (4.0-10.0)
--- NOTE | 2020-06-20 13:25 | REP ---
INDICATION: Altered Mental Status COMPARISON: 07/19/2018 TECHNIQUE: Axial noncontrast images from the skull base to the thoracic inlet with coronal reformations. This CT examination was performed using the following dose reduction techniques: Automated exposure control, adjustment of mA and/or kv according to the patient's size, and use of iterative reconstruction technique. FINDINGS: Age-related atrophy and microvascular ischemic changes are appreciated. The ventricles and sulci are symmetric. Shields-white differentiation is maintained. There is no evidence for acute intracranial hemorrhage, mass/mass effect, pathology or infarction. No extra-axial fluid collection. Calvarium is intact. Paranasal sinuses and mastoid air cells are clear. IMPRESSION: Age related atrophy and microvascular ischemic changes. No acute intracranial hemorrhage, infarction, or mass/mass effect. <Electronically signed by Berto Javier > 06/20/20 [id number]
[2020-06-20 13:27] LABS: ACETAMINOPHEN LEVEL < 2.0 UG/ML (10.0-30.0); ALBUMIN 4.2 GM/DL (3.2-5.2); ALT/SGPT 30 U/L (12-78); BILIRUBIN,DIRECT 0.1 MG/DL (0.0-0.2); BILIRUBIN,TOTAL 0.4 MG/DL (0.2-1.0); BLOOD UREA NITROGEN 7 MG/DL (7-18); CALCIUM LEVEL 9.7 MG/DL (8.8-10.2); CARBON DIOXIDE LEVEL 30 MEQ/L (21-32); CHLORIDE LEVEL 107 MEQ/L (98-107); CREATININE FOR GFR 0.72 MG/DL (0.55-1.30); ETHYL ALCOHOL (ETHANOL) < 0.003 % (0.000-0.010); GLOMERULAR FILTRATION RATE > 60.0 (>45); GLUCOSE, FASTING 104 MG/DL (70-100); POTASSIUM SERUM 3.8 MEQ/L (3.5-5.1); SALICYLATE LEVEL < 1.7 MG/DL (5.0-30.0); SODIUM LEVEL 142 MEQ/L (136-145); TOTAL PROTEIN 7.5 GM/DL (6.4-8.2)
[2020-06-20] MEDS ORDERED: NIFEdipine 10 MG CAP PO ONE (13:45)
--- NOTE | 2020-06-20 13:54 | ECGEPIP ---
[facility] - ED Test Date: 2020-06-20 Pat Name: OG LYON Department: Room: - Gender: Female Deputy County Attorney: glenda : 1955 Requested By: CEDRICK JOINER Order Number: [id number] Reading MD: Graciela Gomez Measurements Intervals [place] Rate: 52 P: 30 CO: 213 QRS: 43 QRSD: 134 T: 228 QT: 461 QTc: 431 Interpretive Statements SINUS BRADYCARDIA WITH FIRST DEGREE AV BLOCK LEFT BUNDLE BRANCH BLOCK SIMILAR 12/16/17 Electronically Signed on 06-20-2020 13:54:35 EST by Graciela Gomez
[2020-06-20 13:57] VITALS: BP 200/92
[2020-06-20] MEDS ORDERED: KETOROLAC 30 MG/ML 1ML VIAL IV ONE (14:15)
[2020-06-20 14:51] VITALS: BP 133/64
== END 2020-06-20 15:08 | disposition home or self-care (01) ==
LOC: M ED 11:47
DX: R51.9 Headache, unspecified (principal); I10 Essential (primary) hypertension; R00.1 Bradycardia, unspecified; I44.0 Atrioventricular block, first degree; F03.90 Unspecified dementia, unspecified severity, without behavioral disturbance, psychotic disturbance, mood disturbance, and anxiety; G47.33 Obstructive sleep apnea (adult) (pediatric); E78.00 Pure hypercholesterolemia, unspecified; Z88.5 Allergy status to narcotic agent; Z79.899 Other long term (current) drug therapy; Z79.82 Long term (current) use of aspirin
CPT/HCPCS: 70450; 80048; 80076; 81001; 82140; 84443; 85025; 93005; 93041; 94760; 96374; 96375; 99285; G0480; J1885; J2765

== ENCOUNTER 2020-07-07 13:51 | Emergency (ER) | payer MEDICARE ==
[~2020-07-07] VITALS: Ht 149.9 cm; Wt 61.6 kg
[2020-07-07] MEDS ORDERED: QUET5TAB PO (14:16)
[2020-07-07] MEDS ORDERED: MELA3TAB30 PO (14:16)
[2020-07-07] MEDS ORDERED: NYST10CR TOP (14:16)
[2020-07-07] MEDS ORDERED: B-12100010 PO (14:16)
[2020-07-07] MEDS ORDERED: DONE10TA90 PO (14:16)
[2020-07-07] MEDS ORDERED: SERT50TA29 PO (14:16)
[2020-07-07] MEDS ORDERED: KETOROLAC 30 MG/ML 1ML VIAL IV ONE (15:00)
[2020-07-07] MEDS ORDERED: METOCLOPRAMIDE INJ 10MG/2ML VIAL (J2765 PER 1) IV ONE (15:00)
[2020-07-07] MEDS ORDERED: CHLO125TA PO (16:34)
[2020-07-07] MEDS ORDERED: PILL CUTTER 1 EACH XX ONE (16:42)
[2020-07-07] MEDS ORDERED: **hydrALAZINE** 10 MG TAB PO ONE (16:45)
[2020-07-07] MEDS ORDERED: CHLORTHALIDONE 12.5MG PER 1/2 TABLET PO ONE (16:45)
[2020-07-07] MEDS ORDERED: CHLORTHALIDONE 25 MG TAB PO ONE (16:45)
[2020-07-07 16:51] VITALS: BP 224/101
[2020-07-07 17:52] VITALS: BP 155/88
--- NOTE | 2020-07-08 07:44 | ECGEPIP ---
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
== END 2020-07-07 17:53 | disposition home or self-care (01) ==
LOC: M ED 13:51
DX: R51.9 Headache, unspecified (principal); I10 Essential (primary) hypertension; I44.7 Left bundle-branch block, unspecified; Z88.5 Allergy status to narcotic agent
CPT/HCPCS: 93005; 96374; 96375; 99284; J1885; J2765

== ENCOUNTER → 2021-03-23 | Outpatient (CLI) | payer MEDICAID, MEDICARE ==
[~2021-03-23] MED LIST changes: -ALEN70TA74 PO; +ALEN70TA82 PO; +B-12100010 PO; +CHLO125TA PO; +DONE10TA90 PO; +HYDR-3490 PO; -HYDR25TAB PO; +MELA3TAB30 PO; +NYST10CR TOP; +QUET50TA4 PO; +SERT50TA29 PO
[2021-03-23 15:15] LABS: THYROID STIMULATING HORMONE 1.24 uIU/ML (0.358-3.740)
== END ==
LOC: M LAB 13:54
PROVIDERS: ATTEND Internal Medicine Gastroenterology
DX: R19.7 Diarrhea, unspecified (principal)

== ENCOUNTER → 2021-04-17 | Outpatient (REF) | payer MEDICARE | LOC: M LAB REF 19:42 | PROVIDERS: ATTEND Internal Medicine Gastroenterology | DX: R19.7 Diarrhea, unspecified (principal) ==

== ENCOUNTER → 2021-06-10 | Outpatient (CLI) | payer MEDICARE, MEDICAID ==
[~2021-06-10] MED LIST changes: +BAYE81TA10 PO; +CLOB5CR TOP; +FLAX1CAP2 PO; +MEMA1TAB3 PO; +VITA-158 PO; +VITA100017 PO; +VITA200010 PO; +ZOLO100T PO
== END ==
LOC: M WHC 14:16
PROVIDERS: ATTEND Nurse Practitioner Women's Health
DX: Z12.31 Encounter for screening mammogram for malignant neoplasm of breast (principal); Z53.9 Procedure and treatment not carried out, unspecified reason

== ENCOUNTER → 2021-06-16 | Outpatient (CLI) | payer MEDICARE | LOC: M LABSMTC 09:48 | PROVIDERS: ATTEND Anesthesiology | DX: Z01.812 Encounter for preprocedural laboratory examination (principal); Z20.822 Contact with and (suspected) exposure to COVID-19 ==

== ENCOUNTER 2021-06-21 07:18 | Day surgery (SDC) | payer MEDICARE ==
[~2021-06-21] VITALS: Ht 154.9 cm; Wt 59.9 kg
[~2021-06-21 07:18] MED LIST changes: +NS 1,000 ML IV ONE
[2021-06-21] MEDS ORDERED: propofoL 500 MG/50 ML VIAL As Ordered ONE (07:26)
[2021-06-21] MEDS ORDERED: LIDOCAINE 2% 100MG/5ML SDV (FOR ANES.) As Ordered ONE (07:26)
[2021-06-21 10:21] VITALS: BP 137/98
== END 2021-06-21 09:30 | disposition home or self-care (01) ==
LOC: M OPP 07:18
PROVIDERS: ATTEND Internal Medicine Gastroenterology
DX: K63.5 Polyp of colon (principal); K58.0 Irritable bowel syndrome with diarrhea; R19.7 Diarrhea, unspecified; Z79.82 Long term (current) use of aspirin; Z79.899 Other long term (current) drug therapy; Z88.2 Allergy status to sulfonamides; Z88.5 Allergy status to narcotic agent

== ENCOUNTER → 2021-07-12 | Outpatient (CLI) | payer OTHER, MEDICAID, MEDICARE ==
[~2021-07-12] MED LIST changes: -NS 1,000 ML IV ONE
== END ==
LOC: M WHC 12:26
PROVIDERS: ATTEND Nurse Practitioner Women's Health
DX: N63.20 Unspecified lump in the left breast, unspecified quadrant (principal)
CPT/HCPCS: 76642; 77066; G0279

== ENCOUNTER 2021-12-20 16:33 | Emergency (ER) | payer MEDICARE ==
[~2021-12-20] VITALS: Ht 149.9 cm; Wt 64.5 kg
[2021-12-20] MEDS ORDERED: CLOB0.057 (16:44)
[2021-12-20] MEDS ORDERED: KETO2CR (16:44)
[2021-12-20] MEDS ORDERED: NS 1,000 ML IV ONE (17:10)
[2021-12-20 17:31] LABS: BASO % 0.3 % (0.0-1.0); EOS # 0.1 10^3/uL (0.0-0.5); EOS % 1.3 % (0.0-3.0); HEMOGLOBIN 14.4 g/dl (12.0-15.5); LYMPH # 0.7 10^3/uL (1.5-5.0); MEAN CORPUSCULAR HEMOGLOBIN 29.8 pg (27.0-33.0); MEAN CORPUSCULAR HGB CONC 33.5 g/dl (32.0-36.5); MONO # 0.4 10^3/uL (0.0-0.8); NEUTROPHILS # 9.1 10^3/uL (1.5-8.5); NEUTROPHILS % 86.8 % (36.0-66.0); PLATELET COUNT, AUTOMATED 231 10^3/uL (150-450); RED BLOOD COUNT 4.83 10^6/uL (4.00-5.40); WHITE BLOOD COUNT 10.5 10^3/uL (4.0-10.0)
[2021-12-20 18:05] LABS: FREE T4 0.92 NG/DL (0.76-1.46); MAGNESIUM LEVEL 1.9 MG/DL (1.8-2.4); THYROID STIMULATING HORMONE 2.06 uIU/ML (0.358-3.740)
[2021-12-20 20:03] VITALS: BP 197/92
== END 2021-12-20 20:09 | disposition home or self-care (01) ==
LOC: M ED 16:33
DX: S50.312A Abrasion of left elbow, initial encounter (principal); S80.211A Abrasion, right knee, initial encounter; W18.39XA Other fall on same level, initial encounter; R42 Dizziness and giddiness; Y93.H2 Activity, gardening and landscaping; Z79.82 Long term (current) use of aspirin; Z79.899 Other long term (current) drug therapy; Z88.1 Allergy status to other antibiotic agents; Z88.2 Allergy status to sulfonamides; Z88.6 Allergy status to analgesic agent

== ENCOUNTER 2022-06-14 12:28 | Emergency (ER) | payer MEDICARE ==
[~2022-06-14] VITALS: Ht 149.9 cm; Wt 67.8 kg
[~2022-06-14 12:28] MED LIST changes: +CLOB0.057; +KETO2CR; +NYST-13 TOP; -NYST10CR TOP
[2022-06-14] MEDS ORDERED: MEMA10TA19 (13:14)
[2022-06-14] MEDS ORDERED: MACR100C43 PO (17:51)
[2022-06-14 18:11] VITALS: BP 162/84
== END 2022-06-14 18:10 | disposition home or self-care (01) ==
LOC: M ED 12:28
DX: N30.90 Cystitis, unspecified without hematuria (principal); Z88.2 Allergy status to sulfonamides; Z88.1 Allergy status to other antibiotic agents; Z88.5 Allergy status to narcotic agent; Z98.890 Other specified postprocedural states; Z98.49 Cataract extraction status, unspecified eye

== ENCOUNTER 2022-08-10 12:22 | Emergency (ER) | payer MEDICARE ==
[~2022-08-10] VITALS: Ht 152.4 cm; Wt 68.2 kg
[~2022-08-10 12:22] MED LIST changes: +MACR100C43 PO; +MEMA10TA19
[2022-08-10] MEDS ORDERED: ALBU8.5H (15:23)
[2022-08-10] MEDS ORDERED: HYDR-643 (15:23)
[2022-08-10] MEDS ORDERED: CITA20TA7 (15:23)
[2022-08-10] MEDS ORDERED: DUPI300I SC (15:23)
[2022-08-10] MEDS ORDERED: ALEN70TA82 (15:23)
[2022-08-10] MEDS ORDERED: MONT10TA97 (15:23)
[2022-08-10] MEDS ORDERED: NYST1POW9 (15:23)
[2022-08-10] MEDS ORDERED: CALC250T PO (15:25)
[2022-08-10] MEDS ORDERED: META0.52 PO (15:25)
[2022-08-10] MEDS ORDERED: GNP250TA9 PO (15:25)
[2022-08-10] MEDS ORDERED: OMEG10002 PO (15:25)
[2022-08-10 17:15] LABS: BASO % 0.3 % (0.0-1.0); EOS # 0.2 10^3/uL (0.0-0.5); EOS % 3.5 % (0.0-3.0); HEMATOCRIT 41.6 % (36.0-47.0); HEMOGLOBIN 13.5 g/dl (12.0-15.5); LYMPH # 1.4 10^3/uL (1.5-5.0); LYMPH % 21.3 % (24.0-44.0); MEAN CORPUSCULAR HEMOGLOBIN 29.8 pg (27.0-33.0); MEAN CORPUSCULAR HGB CONC 32.5 g/dl (32.0-36.5); MEAN CORPUSCULAR VOLUME 91.8 fl (80.0-96.0); MONO # 0.5 10^3/uL (0.0-0.8); MONO % 7.3 % (2.0-8.0); NEUTROPHILS # 4.4 10^3/uL (1.5-8.5); NEUTROPHILS % 67.3 % (36.0-66.0); PLATELET COUNT, AUTOMATED 242 10^3/uL (150-450); RED BLOOD COUNT 4.53 10^6/uL (4.00-5.40); WHITE BLOOD COUNT 6.5 10^3/uL (4.0-10.0)
[2022-08-10 17:29] VITALS: BP 155/72
== END 2022-08-10 17:30 | disposition home or self-care (01) ==
LOC: M ED 15:32
DX: R60.0 Localized edema (principal); I10 Essential (primary) hypertension; E78.5 Hyperlipidemia, unspecified; R51.9 Headache, unspecified; M81.0 Age-related osteoporosis without current pathological fracture; Z79.82 Long term (current) use of aspirin; Z79.899 Other long term (current) drug therapy; Z88.2 Allergy status to sulfonamides; Z88.5 Allergy status to narcotic agent

== ENCOUNTER → 2022-08-28 | Outpatient (REF) | payer MEDICARE ==
[~2022-08-28] MED LIST changes: +ALBU8.5H; +ALEN70TA82; +CALC250T PO; +CITA20TA7; +DUPI300I SC; +GNP250TA9 PO; +HYDR-643; +META0.52 PO; +MONT10TA97; +NYST1POW9; +OMEG10002 PO
== END ==
LOC: M LAB REF 19:10
PROVIDERS: ATTEND Physician Assistant Medical
DX: N39.0 Urinary tract infection, site not specified (principal)

== ENCOUNTER → 2022-09-16 | Outpatient (CLI) | payer MEDICARE ==
[2022-09-16 11:15] LABS: BASO % 0.7 % (0.0-1.0); EOS # 0.3 10^3/uL (0.0-0.5); EOS % 4.2 % (0.0-3.0); HEMATOCRIT 42.7 % (36.0-47.0); LYMPH # 1.2 10^3/uL (1.5-5.0); LYMPH % 20.1 % (24.0-44.0); MEAN CORPUSCULAR HEMOGLOBIN 29.9 pg (27.0-33.0); MEAN CORPUSCULAR HGB CONC 32.8 g/dl (32.0-36.5); MONO # 0.4 10^3/uL (0.0-0.8); MONO % 6.7 % (2.0-8.0); NEUTROPHILS # 4.2 10^3/uL (1.5-8.5); NEUTROPHILS % 68.1 % (36.0-66.0); PLATELET COUNT, AUTOMATED 243 10^3/uL (150-450); RED BLOOD COUNT 4.69 10^6/uL (4.00-5.40); WHITE BLOOD COUNT 6.1 10^3/uL (4.0-10.0)
[2022-09-16 11:48] LABS: ALBUMIN 3.5 G/DL (3.2-5.2); ALKALINE PHOSPHATASE 99 U/L (46-116); ALT/SGPT 34 U/L (7.0-40); AST/SGOT 24 U/L (<34); BILIRUBIN,TOTAL 0.7 MG/DL (0.3-1.2); BLOOD UREA NITROGEN 13 MG/DL (9-23); CALCIUM LEVEL 9.7 MG/DL (8.3-10.6); CARBON DIOXIDE LEVEL 31 MMOL/L (20-31); CHLORIDE LEVEL 104 MMOL/L (98-107); CHOLESTEROL LEVEL 156 MG/DL (<200); CHOLESTEROL RISK RATIO 3.77 (<5); CREATININE FOR GFR 0.65 MG/DL (0.55-1.30); GLOMERULAR FILTRATION RATE > 60.0 (>45); GLUCOSE, FASTING 86 MG/DL (74-106); HDL CHOLESTEROL 41.3 MG/DL (>40); LDL CHOLESTEROL 88.3 MG/DL (<100); NON-HDL-C 115 MG/DL; POTASSIUM SERUM 4.2 MMOL/L (3.5-5.1); SODIUM LEVEL 142 MMOL/L (136-145); TOTAL 25(OH) VITAMIN D 26.8 NG/ML (20.0-100.0); TOTAL PROTEIN 6.6 G/DL (5.7-8.2); TRIGLYCERIDES LEVEL 132 MG/DL (<150)
== END ==
LOC: M LAB 10:08
PROVIDERS: ATTEND Family Medicine
DX: M81.0 Age-related osteoporosis without current pathological fracture (principal); I10 Essential (primary) hypertension

== ENCOUNTER → 2022-11-14 | Outpatient (CLI) | payer MEDICARE | LOC: M WHC 14:37 | PROVIDERS: ATTEND Nurse Practitioner Family | DX: Z12.31 Encounter for screening mammogram for malignant neoplasm of breast (principal) ==

== ENCOUNTER 2023-03-30 12:52 | Inpatient (IN) | payer MEDICARE, MEDICAID ==
[~2023-03-30 12:52] MED LIST changes: -ALEN70TA82; -CITA20TA7; +CITA20TA7 PO; -HYDR-643; +HYDR-643 PO; -KETO2CR; +KETO2CR TOP; -MEMA10TA19; +MEMA10TA19 PO; -MONT10TA97; +MONT10TA97 PO; -NYST1POW9; +NYST1POW9 TOP
[2023-03-30] MEDS ORDERED: ACETAMINOPHEN TAB 650MG DOSE (2X325MG) PO ONE (13:10)
[2023-03-30] MEDS ORDERED: ACETAMINOPHEN 325MG/10.15ML UDC PO ONE (13:45)
[2023-03-30 14:09] LABS: BASO % 0.3 % (0.0-1.0); EOS % 0.1 % (0.0-3.0); HEMATOCRIT 42.6 % (36.0-47.0); HEMOGLOBIN 14.1 g/dl (12.0-15.5); LYMPH # 0.6 10^3/uL (1.5-5.0); LYMPH % 5.4 % (24.0-44.0); MEAN CORPUSCULAR HEMOGLOBIN 29.4 pg (27.0-33.0); MEAN CORPUSCULAR HGB CONC 33.1 g/dl (32.0-36.5); MEAN CORPUSCULAR VOLUME 88.9 fl (80.0-96.0); MONO # 0.8 10^3/uL (0.0-0.8); MONO % 7.3 % (2.0-8.0); NEUTROPHILS # 9.8 10^3/uL (1.5-8.5); NEUTROPHILS % 86.5 % (36.0-66.0); PLATELET COUNT, AUTOMATED 285 10^3/uL (150-450); RED BLOOD COUNT 4.79 10^6/uL (4.00-5.40); WHITE BLOOD COUNT 11.3 10^3/uL (4.0-10.0)
[2023-03-30 14:11] LABS: ETHYL ALCOHOL (ETHANOL) < 0.003 % (0.000-0.010)
[2023-03-30 14:13] LABS: ALBUMIN 3.7 G/DL (3.2-5.2); ALKALINE PHOSPHATASE 92 U/L (46-116); ALT/SGPT 25 U/L (7.0-40); AST/SGOT 16 U/L (<34); BILIRUBIN,DIRECT 0.3 MG/DL (<0.4); BILIRUBIN,TOTAL 0.9 MG/DL (0.3-1.2); BLOOD UREA NITROGEN 14 MG/DL (9-23); CALCIUM LEVEL 9.3 MG/DL (8.3-10.6); CARBON DIOXIDE LEVEL 26 MMOL/L (20-31); CHLORIDE LEVEL 104 MMOL/L (98-107); CK-MB VALUE MASS < 1.0 NG/ML (<3.6); CPK CREATINE PHOSPHOKINASE 75 U/L (34-145); CREATININE FOR GFR 0.56 MG/DL (0.55-1.30); GLOMERULAR FILTRATION RATE > 60.0 (>45); GLUCOSE, FASTING 115 MG/DL (74-106); MB/CK RELATIVE INDEX 1.33 (< OR =4); SODIUM LEVEL 136 MMOL/L (136-145); TOTAL PROTEIN 7.1 G/DL (5.7-8.2)
[2023-03-30 14:22] LABS: INR 1.06; PROTHROMBIN TIME 13.5 SECONDS (12.5-14.5)
[2023-03-30 14:23] LABS: PARTIAL THROMBOPLASTIN TIME 31.4 SECONDS (24.8-34.2)
[2023-03-30 15:51] LABS: LDH LACTATE DEHYDROGENASE 218 U/L (120-246)
[2023-03-30 15:55] LABS: FERRITIN 87.5 NG/ML (7.3-270.7)
[2023-03-30] MEDS ORDERED: MOM 30ML SUSPENSION UDC PO PRN (16:05)
[2023-03-30] MEDS ORDERED: MED REC IN PROGRESS XX SCH (16:30)
[2023-03-30] MEDS ORDERED: CLOB60OI5 TOP (17:00)
[2023-03-30] MEDS ORDERED: CLOB0.057 TOP (17:00)
[2023-03-30] MEDS ORDERED: TEMO0.0517 TOP (17:03)
[2023-03-30] MEDS ORDERED: HOME MED LIST COMPLETE! XX SCH (17:10)
[2023-03-30] MEDS ORDERED: CLOBETASOL PROP 0.05% OINT 30 GM TOP PRN (17:15)
[2023-03-30 17:25] LABS: PROCALCITONIN <0.04 ng/ml
[2023-03-30 19:20] VITALS: BP 136/85; TEMP 98.4; O2SAT 94
[2023-03-30] MEDS: DOCUSATE SODIUM 100MG CAPSULE PO SCH (20:57)
[2023-03-30] MEDS: ATORVASTATIN 20 MG TAB PO SCH (20:57)
[2023-03-30] MEDS: MEMANTINE 5MG TABLET (NAMENDA) PO SCH (20:57)
[2023-03-30] MEDS: guaiFENesin ER 600 MG TAB PO SCH (20:57)
[2023-03-30] MEDS: MAGNESIUM OXIDE 400MG TAB (MAG-OX) PO SCH (20:57)
[2023-03-30] MEDS: ASCORBIC ACID 500 MG TAB PO SCH (20:57)
[2023-03-30] MEDS: CitaloPRAM (CeleXA) 20 MG TAB PO SCH (20:57)
[2023-03-30 20:58] VITALS: TEMP 101.8
[2023-03-30] MEDS: ACETAMINOPHEN TAB 650MG DOSE (2X325MG) PO PRN (20:58)
[2023-03-30] MEDS: CARVedilol 12.5 MG TAB PO SCH (20:59)
[2023-03-30] MEDS ORDERED: REMDESIVIR 200 MG in NS 250 ML IV ONE (23:00)
[2023-03-30 23:35] VITALS: TEMP 98.1
[2023-03-31] MEDS: ACETAMINOPHEN TAB 650MG DOSE (2X325MG) PO PRN (05:39)
[2023-03-31 05:56] LABS: BASO % 0.3 % (0.0-1.0); EOS % 0.7 % (0.0-3.0); HEMATOCRIT 38.9 % (36.0-47.0); HEMOGLOBIN 12.6 g/dl (12.0-15.5); LYMPH # 0.7 10^3/uL (1.5-5.0); LYMPH % 11.9 % (24.0-44.0); MEAN CORPUSCULAR HEMOGLOBIN 29.3 pg (27.0-33.0); MEAN CORPUSCULAR HGB CONC 32.4 g/dl (32.0-36.5); MEAN CORPUSCULAR VOLUME 90.5 fl (80.0-96.0); MONO # 0.9 10^3/uL (0.0-0.8); MONO % 14.7 % (2.0-8.0); NEUTROPHILS # 4.4 10^3/uL (1.5-8.5); NEUTROPHILS % 72.1 % (36.0-66.0); PLATELET COUNT, AUTOMATED 218 10^3/uL (150-450); WHITE BLOOD COUNT 6.1 10^3/uL (4.0-10.0)
[2023-03-31 06:00] VITALS: BP 134/64; TEMP 101.2; O2SAT 95
[2023-03-31 06:25] LABS: ALBUMIN 3.2 G/DL (3.2-5.2); ALKALINE PHOSPHATASE 77 U/L (46-116); ALT/SGPT 22 U/L (7.0-40); AST/SGOT 20 U/L (<34); BILIRUBIN,DIRECT 0.2 MG/DL (<0.4); BILIRUBIN,TOTAL 0.5 MG/DL (0.3-1.2); BLOOD UREA NITROGEN 18 MG/DL (9-23); CALCIUM LEVEL 8.5 MG/DL (8.3-10.6); CARBON DIOXIDE LEVEL 30 MMOL/L (20-31); CHLORIDE LEVEL 102 MMOL/L (98-107); CREATININE FOR GFR 0.67 MG/DL (0.55-1.30); GLOMERULAR FILTRATION RATE > 60.0 (>45); GLUCOSE, FASTING 99 MG/DL (74-106); MAGNESIUM LEVEL 2.1 MG/DL (1.8-2.4); POTASSIUM SERUM 3.8 MMOL/L (3.5-5.1); SODIUM LEVEL 138 MMOL/L (136-145); TOTAL PROTEIN 6.3 G/DL (5.7-8.2)
[2023-03-31] MEDS: guaiFENesin ER 600 MG TAB PO SCH (10:02)
[2023-03-31] MEDS: DOCUSATE SODIUM 100MG CAPSULE PO SCH ×2 (10:02→21:00)
[2023-03-31] MEDS: ASCORBIC ACID 500 MG TAB PO SCH ×2 (10:02→21:48)
[2023-03-31] MEDS: ASPIRIN 81MG ENTERIC TABLET PO SCH (10:02)
[2023-03-31] MEDS: CARVedilol 12.5 MG TAB PO SCH ×2 (10:02→21:47)
[2023-03-31] MEDS: ENOXAPARIN 40MG/0.4ML SYRINGE (J1650 PER 10MG) SC SCH (10:03)
[2023-03-31 14:00] VITALS: BP 132/78; TEMP 100.1; O2SAT 93
[2023-03-31 20:00] VITALS: BP 141/77; TEMP 98.6; O2SAT 94
[2023-03-31] MEDS ORDERED: guaiFENesin SYRUP 200MG 10ML UDC PO PRN (21:20)
[2023-03-31] MEDS: ATORVASTATIN 20 MG TAB PO SCH (21:47)
[2023-03-31] MEDS: MEMANTINE 5MG TABLET (NAMENDA) PO SCH (21:48)
[2023-03-31] MEDS: MAGNESIUM OXIDE 400MG TAB (MAG-OX) PO SCH (21:48)
[2023-03-31] MEDS: CitaloPRAM (CeleXA) 20 MG TAB PO SCH (21:48)
[2023-03-31] MEDS: REMDESIVIR 100 MG in NS 250 ML IV SCH (23:17)
[2023-04-01 06:00] VITALS: BP 145/71; TEMP 98.6; O2SAT 96
[2023-04-01 06:05] LABS: BASO % 0.4 % (0.0-1.0); EOS # 0.1 10^3/uL (0.0-0.5); EOS % 1.1 % (0.0-3.0); HEMATOCRIT 39.8 % (36.0-47.0); HEMOGLOBIN 13.1 g/dl (12.0-15.5); LYMPH # 1.1 10^3/uL (1.5-5.0); MEAN CORPUSCULAR HEMOGLOBIN 29.5 pg (27.0-33.0); MEAN CORPUSCULAR HGB CONC 32.9 g/dl (32.0-36.5); MEAN CORPUSCULAR VOLUME 89.6 fl (80.0-96.0); MONO # 0.7 10^3/uL (0.0-0.8); MONO % 15.9 % (2.0-8.0); NEUTROPHILS # 2.8 10^3/uL (1.5-8.5); NEUTROPHILS % 59.4 % (36.0-66.0); PLATELET COUNT, AUTOMATED 221 10^3/uL (150-450); RED BLOOD COUNT 4.44 10^6/uL (4.00-5.40); WHITE BLOOD COUNT 4.7 10^3/uL (4.0-10.0)
[2023-04-01 06:22] LABS: BLOOD UREA NITROGEN 14 MG/DL (9-23); CALCIUM LEVEL 8.5 MG/DL (8.3-10.6); CARBON DIOXIDE LEVEL 28 MMOL/L (20-31); CHLORIDE LEVEL 104 MMOL/L (98-107); CREATININE FOR GFR 0.52 MG/DL (0.55-1.30); GLOMERULAR FILTRATION RATE > 60.0 (>45); GLUCOSE, FASTING 91 MG/DL (74-106); MAGNESIUM LEVEL 2.1 MG/DL (1.8-2.4); POTASSIUM SERUM 4.5 MMOL/L (3.5-5.1); SODIUM LEVEL 140 MMOL/L (136-145)
[2023-04-01] MEDS: ENOXAPARIN 40MG/0.4ML SYRINGE (J1650 PER 10MG) SC SCH ×2 (09:00→11:09)
[2023-04-01] MEDS: ASPIRIN 81MG ENTERIC TABLET PO SCH (11:08)
[2023-04-01] MEDS: CARVedilol 12.5 MG TAB PO SCH ×2 (11:08→21:56)
[2023-04-01] MEDS: DOCUSATE SODIUM 100MG CAPSULE PO SCH ×2 (11:08→21:55)
[2023-04-01] MEDS: ASCORBIC ACID 500 MG TAB PO SCH ×2 (11:08→21:55)
[2023-04-01 13:52] VITALS: BP 144/79; TEMP 98.1; O2SAT 94
[2023-04-01] MEDS: MICONAZOLE TOPICAL 2% CREAM 15GM EXT SCH (18:30)
[2023-04-01 20:35] VITALS: BP 140/83; TEMP 100.4; O2SAT 95
[2023-04-01] MEDS: MEMANTINE 5MG TABLET (NAMENDA) PO SCH (21:55)
[2023-04-01] MEDS: ATORVASTATIN 20 MG TAB PO SCH (21:55)
[2023-04-01] MEDS: MAGNESIUM OXIDE 400MG TAB (MAG-OX) PO SCH (21:55)
[2023-04-01] MEDS: CitaloPRAM (CeleXA) 20 MG TAB PO SCH (21:56)
[2023-04-01] MEDS: REMDESIVIR 100 MG in NS 250 ML IV SCH (22:45)
[2023-04-02 05:13] VITALS: BP 121/70; TEMP 98.2; O2SAT 94
[2023-04-02 06:03] LABS: BASO % 0.2 % (0.0-1.0); EOS # 0.1 10^3/uL (0.0-0.5); EOS % 0.9 % (0.0-3.0); HEMATOCRIT 37.5 % (36.0-47.0); HEMOGLOBIN 12.7 g/dl (12.0-15.5); LYMPH # 1.3 10^3/uL (1.5-5.0); LYMPH % 20.4 % (24.0-44.0); MEAN CORPUSCULAR HEMOGLOBIN 29.8 pg (27.0-33.0); MEAN CORPUSCULAR HGB CONC 33.9 g/dl (32.0-36.5); MONO # 0.8 10^3/uL (0.0-0.8); MONO % 12.6 % (2.0-8.0); NEUTROPHILS # 4.1 10^3/uL (1.5-8.5); NEUTROPHILS % 65.4 % (36.0-66.0); PLATELET COUNT, AUTOMATED 257 10^3/uL (150-450); RED BLOOD COUNT 4.26 10^6/uL (4.00-5.40); WHITE BLOOD COUNT 6.3 10^3/uL (4.0-10.0)
[2023-04-02 06:29] LABS: BLOOD UREA NITROGEN 16 MG/DL (9-23); CALCIUM LEVEL 8.1 MG/DL (8.3-10.6); CARBON DIOXIDE LEVEL 29 MMOL/L (20-31); CHLORIDE LEVEL 105 MMOL/L (98-107); CREATININE FOR GFR 0.49 MG/DL (0.55-1.30); GLOMERULAR FILTRATION RATE > 60.0 (>45); GLUCOSE, FASTING 100 MG/DL (74-106); MAGNESIUM LEVEL 2.1 MG/DL (1.8-2.4); POTASSIUM SERUM 3.4 MMOL/L (3.5-5.1); SODIUM LEVEL 141 MMOL/L (136-145)
[2023-04-02] MEDS ORDERED: POTASSIUM CHLORIDE 10MEQ SR TABLET PO ONE (07:15)
[2023-04-02] MEDS: ENOXAPARIN 40MG/0.4ML SYRINGE (J1650 PER 10MG) SC SCH ×2 (09:00→10:26)
[2023-04-02] MEDS: ASCORBIC ACID 500 MG TAB PO SCH ×2 (10:22→21:10)
[2023-04-02] MEDS: ASPIRIN 81MG ENTERIC TABLET PO SCH (10:22)
[2023-04-02] MEDS: CARVedilol 12.5 MG TAB PO SCH ×2 (10:22→21:10)
[2023-04-02] MEDS: DOCUSATE SODIUM 100MG CAPSULE PO SCH ×2 (10:23→21:10)
[2023-04-02] MEDS: MICONAZOLE TOPICAL 2% CREAM 15GM EXT SCH (10:25)
[2023-04-02] MEDS: MAGNESIUM OXIDE 400MG TAB (MAG-OX) PO SCH (21:07)
[2023-04-02] MEDS: ATORVASTATIN 20 MG TAB PO SCH (21:08)
[2023-04-02] MEDS: CitaloPRAM (CeleXA) 20 MG TAB PO SCH (21:08)
[2023-04-02] MEDS: MEMANTINE 5MG TABLET (NAMENDA) PO SCH (21:08)
[2023-04-03 04:34] VITALS: BP 119/76; TEMP 97.5; O2SAT 96
[2023-04-03 06:32] LABS: BASO % 0.4 % (0.0-1.0); EOS # 0.2 10^3/uL (0.0-0.5); EOS % 4.7 % (0.0-3.0); HEMATOCRIT 38.6 % (36.0-47.0); HEMOGLOBIN 12.6 g/dl (12.0-15.5); LYMPH # 1.5 10^3/uL (1.5-5.0); LYMPH % 31.1 % (24.0-44.0); MEAN CORPUSCULAR HEMOGLOBIN 29.4 pg (27.0-33.0); MEAN CORPUSCULAR HGB CONC 32.6 g/dl (32.0-36.5); MEAN CORPUSCULAR VOLUME 90.2 fl (80.0-96.0); MONO # 0.5 10^3/uL (0.0-0.8); MONO % 9.8 % (2.0-8.0); NEUTROPHILS # 2.6 10^3/uL (1.5-8.5); NEUTROPHILS % 53.8 % (36.0-66.0); PLATELET COUNT, AUTOMATED 263 10^3/uL (150-450); RED BLOOD COUNT 4.28 10^6/uL (4.00-5.40); WHITE BLOOD COUNT 4.9 10^3/uL (4.0-10.0)
[2023-04-03 06:57] LABS: BLOOD UREA NITROGEN 23 MG/DL (9-23); CALCIUM LEVEL 8.4 MG/DL (8.3-10.6); CARBON DIOXIDE LEVEL 30 MMOL/L (20-31); CHLORIDE LEVEL 106 MMOL/L (98-107); CREATININE FOR GFR 0.66 MG/DL (0.55-1.30); GLOMERULAR FILTRATION RATE > 60.0 (>45); GLUCOSE, FASTING 92 MG/DL (74-106); POTASSIUM SERUM 3.7 MMOL/L (3.5-5.1); SODIUM LEVEL 143 MMOL/L (136-145)
[2023-04-03] MEDS: ASPIRIN 81MG ENTERIC TABLET PO SCH (09:41)
[2023-04-03] MEDS: ASCORBIC ACID 500 MG TAB PO SCH ×2 (09:41→21:05)
[2023-04-03] MEDS: ENOXAPARIN 40MG/0.4ML SYRINGE (J1650 PER 10MG) SC SCH (09:41)
[2023-04-03] MEDS: DOCUSATE SODIUM 100MG CAPSULE PO SCH ×2 (09:41→21:05)
[2023-04-03] MEDS: CARVedilol 12.5 MG TAB PO SCH ×2 (09:42→21:06)
[2023-04-03] MEDS: MICONAZOLE TOPICAL 2% CREAM 15GM EXT SCH (09:42)
[2023-04-03] MEDS: MEMANTINE 5MG TABLET (NAMENDA) PO SCH (21:06)
[2023-04-03] MEDS: ATORVASTATIN 20 MG TAB PO SCH (21:06)
[2023-04-03] MEDS: MAGNESIUM OXIDE 400MG TAB (MAG-OX) PO SCH (21:06)
[2023-04-03] MEDS: CitaloPRAM (CeleXA) 20 MG TAB PO SCH (21:06)
[2023-04-04 05:53] VITALS: BP 134/80; TEMP 97.7; O2SAT 95
[2023-04-04 05:55] LABS: BASO % 0.4 % (0.0-1.0); EOS # 0.2 10^3/uL (0.0-0.5); EOS % 4.7 % (0.0-3.0); HEMATOCRIT 37.8 % (36.0-47.0); HEMOGLOBIN 12.3 g/dl (12.0-15.5); LYMPH # 1.8 10^3/uL (1.5-5.0); LYMPH % 33.9 % (24.0-44.0); MEAN CORPUSCULAR HEMOGLOBIN 29.4 pg (27.0-33.0); MEAN CORPUSCULAR HGB CONC 32.5 g/dl (32.0-36.5); MEAN CORPUSCULAR VOLUME 90.4 fl (80.0-96.0); MONO # 0.5 10^3/uL (0.0-0.8); MONO % 10.3 % (2.0-8.0); NEUTROPHILS # 2.6 10^3/uL (1.5-8.5); NEUTROPHILS % 50.3 % (36.0-66.0); PLATELET COUNT, AUTOMATED 248 10^3/uL (150-450); RED BLOOD COUNT 4.18 10^6/uL (4.00-5.40); WHITE BLOOD COUNT 5.2 10^3/uL (4.0-10.0)
[2023-04-04 06:26] LABS: BLOOD UREA NITROGEN 20 MG/DL (9-23); CALCIUM LEVEL 8.6 MG/DL (8.3-10.6); CARBON DIOXIDE LEVEL 32 MMOL/L (20-31); CHLORIDE LEVEL 105 MMOL/L (98-107); CREATININE FOR GFR 0.59 MG/DL (0.55-1.30); GLOMERULAR FILTRATION RATE > 60.0 (>45); GLUCOSE, FASTING 90 MG/DL (74-106); POTASSIUM SERUM 3.6 MMOL/L (3.5-5.1); SODIUM LEVEL 144 MMOL/L (136-145)
[2023-04-04] MEDS: ASCORBIC ACID 500 MG TAB PO SCH ×2 (08:52→21:37)
[2023-04-04] MEDS: ASPIRIN 81MG ENTERIC TABLET PO SCH (08:52)
[2023-04-04] MEDS: ENOXAPARIN 40MG/0.4ML SYRINGE (J1650 PER 10MG) SC SCH (08:52)
[2023-04-04] MEDS: DOCUSATE SODIUM 100MG CAPSULE PO SCH ×2 (08:53→21:38)
[2023-04-04] MEDS: MICONAZOLE TOPICAL 2% CREAM 15GM EXT SCH (08:53)
[2023-04-04] MEDS: CARVedilol 12.5 MG TAB PO SCH ×2 (08:55→21:38)
[2023-04-04] MEDS: MAGNESIUM OXIDE 400MG TAB (MAG-OX) PO SCH (21:37)
[2023-04-04] MEDS: MEMANTINE 5MG TABLET (NAMENDA) PO SCH (21:38)
[2023-04-04] MEDS: CitaloPRAM (CeleXA) 20 MG TAB PO SCH (21:38)
[2023-04-04] MEDS: ATORVASTATIN 20 MG TAB PO SCH (21:38)
[2023-04-05 05:43] VITALS: BP 142/88; TEMP 97.2; O2SAT 94
[2023-04-05 09:18] LABS: BASO % 0.2 % (0.0-1.0); EOS # 0.2 10^3/uL (0.0-0.5); EOS % 2.9 % (0.0-3.0); HEMATOCRIT 39.7 % (36.0-47.0); HEMOGLOBIN 13.1 g/dl (12.0-15.5); LYMPH # 0.9 10^3/uL (1.5-5.0); LYMPH % 16.9 % (24.0-44.0); MEAN CORPUSCULAR HEMOGLOBIN 29.9 pg (27.0-33.0); MEAN CORPUSCULAR VOLUME 90.6 fl (80.0-96.0); MONO # 0.4 10^3/uL (0.0-0.8); MONO % 7.2 % (2.0-8.0); NEUTROPHILS # 3.9 10^3/uL (1.5-8.5); NEUTROPHILS % 72.1 % (36.0-66.0); PLATELET COUNT, AUTOMATED 275 10^3/uL (150-450); RED BLOOD COUNT 4.38 10^6/uL (4.00-5.40); WHITE BLOOD COUNT 5.4 10^3/uL (4.0-10.0)
[2023-04-05] MEDS: ASPIRIN 81MG ENTERIC TABLET PO SCH (09:35)
[2023-04-05] MEDS: ENOXAPARIN 40MG/0.4ML SYRINGE (J1650 PER 10MG) SC SCH (09:35)
[2023-04-05] MEDS: MICONAZOLE TOPICAL 2% CREAM 15GM EXT SCH (09:36)
[2023-04-05] MEDS: ASCORBIC ACID 500 MG TAB PO SCH ×2 (09:36→21:46)
[2023-04-05] MEDS: DOCUSATE SODIUM 100MG CAPSULE PO SCH ×2 (09:36→21:00)
[2023-04-05] MEDS: CARVedilol 12.5 MG TAB PO SCH ×2 (09:36→21:51)
[2023-04-05 09:41] LABS: BLOOD UREA NITROGEN 14 MG/DL (9-23); CALCIUM LEVEL 8.8 MG/DL (8.3-10.6); CARBON DIOXIDE LEVEL 33 MMOL/L (20-31); CHLORIDE LEVEL 107 MMOL/L (98-107); CREATININE FOR GFR 0.58 MG/DL (0.55-1.30); GLOMERULAR FILTRATION RATE > 60.0 (>45); GLUCOSE, FASTING 126 MG/DL (74-106); POTASSIUM SERUM 3.8 MMOL/L (3.5-5.1); SODIUM LEVEL 146 MMOL/L (136-145)
[2023-04-05] MEDS: MEMANTINE 5MG TABLET (NAMENDA) PO SCH (21:46)
[2023-04-05] MEDS: ATORVASTATIN 20 MG TAB PO SCH (21:46)
[2023-04-05] MEDS: CitaloPRAM (CeleXA) 20 MG TAB PO SCH (21:46)
[2023-04-05] MEDS: MAGNESIUM OXIDE 400MG TAB (MAG-OX) PO SCH (21:46)
[2023-04-06 05:43] VITALS: BP 138/76; TEMP 98.2; O2SAT 95
[2023-04-06 07:15] LABS: BASO % 0.3 % (0.0-1.0); EOS # 0.2 10^3/uL (0.0-0.5); EOS % 3.4 % (0.0-3.0); HEMATOCRIT 38.4 % (36.0-47.0); HEMOGLOBIN 12.4 g/dl (12.0-15.5); LYMPH # 1.6 10^3/uL (1.5-5.0); LYMPH % 27.1 % (24.0-44.0); MEAN CORPUSCULAR HEMOGLOBIN 29.2 pg (27.0-33.0); MEAN CORPUSCULAR HGB CONC 32.3 g/dl (32.0-36.5); MEAN CORPUSCULAR VOLUME 90.4 fl (80.0-96.0); MONO # 0.6 10^3/uL (0.0-0.8); MONO % 10.8 % (2.0-8.0); NEUTROPHILS # 3.5 10^3/uL (1.5-8.5); NEUTROPHILS % 57.9 % (36.0-66.0); PLATELET COUNT, AUTOMATED 270 10^3/uL (150-450); RED BLOOD COUNT 4.25 10^6/uL (4.00-5.40)
[2023-04-06 07:43] LABS: BLOOD UREA NITROGEN 17 MG/DL (9-23); CALCIUM LEVEL 8.8 MG/DL (8.3-10.6); CHLORIDE LEVEL 108 MMOL/L (98-107); CREATININE FOR GFR 0.55 MG/DL (0.55-1.30); GLOMERULAR FILTRATION RATE > 60.0 (>45); GLUCOSE, FASTING 90 MG/DL (74-106); SODIUM LEVEL 147 MMOL/L (136-145)
[2023-04-06 08:12] LABS: CARBON DIOXIDE LEVEL 32 MMOL/L (20-31)
[2023-04-06 08:47] VITALS: BP 157/79
[2023-04-06] MEDS: ASPIRIN 81MG ENTERIC TABLET PO SCH (08:56)
[2023-04-06] MEDS: ASCORBIC ACID 500 MG TAB PO SCH ×2 (08:56→21:49)
[2023-04-06] MEDS: CARVedilol 12.5 MG TAB PO SCH ×2 (08:56→21:51)
[2023-04-06] MEDS: DOCUSATE SOD LIQ 100MG/10ML UDC PO SCH ×2 (08:56→21:48)
[2023-04-06] MEDS: ENOXAPARIN 40MG/0.4ML SYRINGE (J1650 PER 10MG) SC SCH (08:57)
[2023-04-06] MEDS: MICONAZOLE TOPICAL 2% CREAM 15GM EXT SCH (08:57)
[2023-04-06] MEDS: CitaloPRAM (CeleXA) 20 MG TAB PO SCH (21:48)
[2023-04-06] MEDS: ATORVASTATIN 20 MG TAB PO SCH (21:48)
[2023-04-06] MEDS: MEMANTINE 5MG TABLET (NAMENDA) PO SCH (21:49)
[2023-04-06] MEDS: MAGNESIUM OXIDE 400MG TAB (MAG-OX) PO SCH (21:49)
[2023-04-07 04:58] VITALS: BP 135/73; TEMP 97.9; O2SAT 96
[2023-04-07 08:48] VITALS: BP 113/77
[2023-04-07] MEDS: CARVedilol 12.5 MG TAB PO SCH ×2 (08:48→20:57)
[2023-04-07] MEDS: DOCUSATE SOD LIQ 100MG/10ML UDC PO SCH ×2 (08:49→20:57)
[2023-04-07] MEDS: ASPIRIN 81MG ENTERIC TABLET PO SCH (08:49)
[2023-04-07] MEDS: ASCORBIC ACID 500 MG TAB PO SCH ×2 (08:49→20:57)
[2023-04-07] MEDS: MICONAZOLE TOPICAL 2% CREAM 15GM EXT SCH (08:50)
[2023-04-07] MEDS: ENOXAPARIN 40MG/0.4ML SYRINGE (J1650 PER 10MG) SC SCH ×2 (08:50→08:57)
[2023-04-07 09:13] LABS: BLOOD UREA NITROGEN 17 MG/DL (9-23); CALCIUM LEVEL 9.2 MG/DL (8.3-10.6); CARBON DIOXIDE LEVEL 34 MMOL/L (20-31); CHLORIDE LEVEL 107 MMOL/L (98-107); CREATININE FOR GFR 0.62 MG/DL (0.55-1.30); GLOMERULAR FILTRATION RATE > 60.0 (>45); GLUCOSE, FASTING 106 MG/DL (74-106); POTASSIUM SERUM 4.2 MMOL/L (3.5-5.1); SODIUM LEVEL 147 MMOL/L (136-145)
[2023-04-07] MEDS ORDERED: LR 1,000 ML IV ONE (10:20)
[2023-04-07] MEDS ORDERED: D5W 1,000 ML IV SCH (12:15)
[2023-04-07] MEDS: ATORVASTATIN 20 MG TAB PO SCH (20:56)
[2023-04-07] MEDS: MEMANTINE 5MG TABLET (NAMENDA) PO SCH (20:57)
[2023-04-07] MEDS: MAGNESIUM OXIDE 400MG TAB (MAG-OX) PO SCH (20:57)
[2023-04-07] MEDS: CitaloPRAM (CeleXA) 20 MG TAB PO SCH (20:57)
[2023-04-08 05:10] VITALS: BP 148/71; TEMP 98.1; O2SAT 98
[2023-04-08 07:13] LABS: BLOOD UREA NITROGEN 9 MG/DL (9-23); CALCIUM LEVEL 8.8 MG/DL (8.3-10.6); CARBON DIOXIDE LEVEL 31 MMOL/L (20-31); CHLORIDE LEVEL 104 MMOL/L (98-107); CREATININE FOR GFR 0.51 MG/DL (0.55-1.30); GLOMERULAR FILTRATION RATE > 60.0 (>45); GLUCOSE, FASTING 90 MG/DL (74-106); POTASSIUM SERUM 3.8 MMOL/L (3.5-5.1); SODIUM LEVEL 141 MMOL/L (136-145)
[2023-04-08] MEDS: CARVedilol 12.5 MG TAB PO SCH ×2 (09:00→20:06)
[2023-04-08] MEDS: ENOXAPARIN 40MG/0.4ML SYRINGE (J1650 PER 10MG) SC SCH ×2 (09:00→10:11)
[2023-04-08] MEDS: MICONAZOLE TOPICAL 2% CREAM 15GM EXT SCH (10:11)
[2023-04-08] MEDS: DOCUSATE SOD LIQ 100MG/10ML UDC PO SCH ×2 (10:11→20:06)
[2023-04-08] MEDS: ASCORBIC ACID 500 MG TAB PO SCH ×2 (10:11→20:06)
[2023-04-08] MEDS: ASPIRIN 81MG ENTERIC TABLET PO SCH (10:11)
[2023-04-08] MEDS: MAGNESIUM OXIDE 400MG TAB (MAG-OX) PO SCH (20:05)
[2023-04-08] MEDS: ATORVASTATIN 20 MG TAB PO SCH (20:05)
[2023-04-08] MEDS: CitaloPRAM (CeleXA) 20 MG TAB PO SCH (20:06)
[2023-04-08] MEDS: MEMANTINE 5MG TABLET (NAMENDA) PO SCH (20:06)
[2023-04-09 05:30] VITALS: BP 121/68; TEMP 97.9; O2SAT 95
[2023-04-09] MEDS: ENOXAPARIN 40MG/0.4ML SYRINGE (J1650 PER 10MG) SC SCH (09:00)
[2023-04-09] MEDS: CARVedilol 12.5 MG TAB PO SCH ×2 (09:00→20:29)
[2023-04-09] MEDS: DOCUSATE SOD LIQ 100MG/10ML UDC PO SCH ×2 (09:22→20:25)
[2023-04-09] MEDS: ASPIRIN 81MG ENTERIC TABLET PO SCH (09:22)
[2023-04-09] MEDS: MICONAZOLE TOPICAL 2% CREAM 15GM EXT SCH (09:22)
[2023-04-09] MEDS: ASCORBIC ACID 500 MG TAB PO SCH ×2 (09:22→20:26)
[2023-04-09] MEDS: MAGNESIUM OXIDE 400MG TAB (MAG-OX) PO SCH (20:26)
[2023-04-09] MEDS: ATORVASTATIN 20 MG TAB PO SCH (20:26)
[2023-04-09] MEDS: CitaloPRAM (CeleXA) 20 MG TAB PO SCH (20:26)
[2023-04-09] MEDS: MEMANTINE 5MG TABLET (NAMENDA) PO SCH (20:26)
[2023-04-10 06:00] VITALS: BP 146/77; TEMP 97.9; O2SAT 95
[2023-04-10] MEDS: DOCUSATE SOD LIQ 100MG/10ML UDC PO SCH ×2 (08:22→20:37)
[2023-04-10] MEDS: ASPIRIN 81MG ENTERIC TABLET PO SCH (08:22)
[2023-04-10] MEDS: ASCORBIC ACID 500 MG TAB PO SCH ×2 (08:22→20:37)
[2023-04-10] MEDS: ENOXAPARIN 40MG/0.4ML SYRINGE (J1650 PER 10MG) SC SCH (08:22)
[2023-04-10] MEDS: CARVedilol 12.5 MG TAB PO SCH ×2 (08:22→20:36)
[2023-04-10] MEDS: MICONAZOLE TOPICAL 2% CREAM 15GM EXT SCH (08:23)
[2023-04-10 20:34] VITALS: BP 132/70
[2023-04-10 20:36] VITALS: BP 132/70
[2023-04-10] MEDS: MEMANTINE 5MG TABLET (NAMENDA) PO SCH (20:36)
[2023-04-10] MEDS: ATORVASTATIN 20 MG TAB PO SCH (20:37)
[2023-04-10] MEDS: CitaloPRAM (CeleXA) 20 MG TAB PO SCH (20:37)
[2023-04-10] MEDS: MAGNESIUM OXIDE 400MG TAB (MAG-OX) PO SCH (20:37)
[2023-04-11 05:02] VITALS: BP 136/71; TEMP 97.7; O2SAT 96
[2023-04-11] MEDS: CARVedilol 12.5 MG TAB PO SCH (09:12)
[2023-04-11] MEDS: ASPIRIN 81MG ENTERIC TABLET PO SCH (09:12)
[2023-04-11] MEDS: ASCORBIC ACID 500 MG TAB PO SCH (09:12)
[2023-04-11] MEDS: DOCUSATE SOD LIQ 100MG/10ML UDC PO SCH (09:12)
[2023-04-11] MEDS: MICONAZOLE TOPICAL 2% CREAM 15GM EXT SCH (09:13)
[2023-04-11] MEDS: ENOXAPARIN 40MG/0.4ML SYRINGE (J1650 PER 10MG) SC SCH (09:13)
== END 2023-04-11 13:15 | DRG 178 ==
LOC: M ED 12:52 → EDBD 12:52 → M ED INP 16:23 → M MSPAV 20:19
PROVIDERS: ADMIT Internal Medicine; ATTEND Internal Medicine
PROC: XW033E5 Introduction of Remdesivir Anti-infective into Peripheral Vein, Percutaneous Approach, New Technology Group 5 (ICD-10-PCS; principal; 2023-03-30)
DX: U07.1 COVID-19 (principal); E87.0 Hyperosmolality and hypernatremia; G30.9 Alzheimer's disease, unspecified; F02.80 Dementia in other diseases classified elsewhere, unspecified severity, without behavioral disturbance, psychotic disturbance, mood disturbance, and anxiety; I10 Essential (primary) hypertension; E78.5 Hyperlipidemia, unspecified; M81.0 Age-related osteoporosis without current pathological fracture; L30.4 Erythema intertrigo; F41.9 Anxiety disorder, unspecified; R53.1 Weakness; I44.7 Left bundle-branch block, unspecified; E83.42 Hypomagnesemia; L40.9 Psoriasis, unspecified; Z79.82 Long term (current) use of aspirin; Z79.899 Other long term (current) drug therapy; Z88.2 Allergy status to sulfonamides; Z88.5 Allergy status to narcotic agent

== ENCOUNTER 2023-07-18 09:33 | Observation (INO) | payer MEDICARE, MEDICAID ==
[~2023-07-18] VITALS: Ht 162.6 cm; Wt 70.1 kg
[~2023-07-18 09:33] MED LIST changes: +ASPIRIN 81MG ENTERIC TABLET PO SCH; +CLOB0.057 TOP; +CLOB60OI5 TOP; +FLUCONAZOLE 100 MG TAB PO SCH; +FLUCONAZOLE 40MG/ML ORAL SUSP 35ML **DRAW UP EXACT DOSE PO SCH; +TEMO0.0517 TOP
[2023-07-18 11:29] LABS: BLOOD UREA NITROGEN 12 MG/DL (9-23); CARBON DIOXIDE LEVEL 31 MMOL/L (20-31); CHLORIDE LEVEL 103 MMOL/L (98-107); CREATININE FOR GFR 0.56 MG/DL (0.55-1.30); GLOMERULAR FILTRATION RATE > 60.0 (>39); GLUCOSE, FASTING 106 MG/DL (74-106); POTASSIUM SERUM 4.2 MMOL/L (3.5-5.1); SODIUM LEVEL 138 MMOL/L (136-145)
[2023-07-18 11:36] LABS: BASO % 0.2 % (0.0-1.0); EOS # 0.2 10^3/uL (0.0-0.5); EOS % 1.5 % (0.0-3.0); HEMATOCRIT 42.4 % (36.0-47.0); HEMOGLOBIN 13.8 g/dl (12.0-15.5); LYMPH % 9.3 % (24.0-44.0); MEAN CORPUSCULAR HEMOGLOBIN 29.4 pg (27.0-33.0); MEAN CORPUSCULAR HGB CONC 32.5 g/dl (32.0-36.5); MEAN CORPUSCULAR VOLUME 90.4 fl (80.0-96.0); MONO # 0.6 10^3/uL (0.0-0.8); NEUTROPHILS # 9.2 10^3/uL (1.5-8.5); NEUTROPHILS % 83.1 % (36.0-66.0); PLATELET COUNT, AUTOMATED 245 10^3/uL (150-450); RED BLOOD COUNT 4.69 10^6/uL (4.00-5.40)
[2023-07-18] MEDS ORDERED: MED REC IN PROGRESS XX SCH (13:35)
[2023-07-18] MEDS: ACETAMINOPHEN TAB 650MG DOSE (2X325MG) PO PRN ×2 (14:50→20:54)
[2023-07-18] MEDS ORDERED: FLUC200T4 PO (15:27)
[2023-07-18] MEDS ORDERED: DEUC6TAB PO (15:38)
[2023-07-18] MEDS ORDERED: CLOB5CR TOP (15:42)
[2023-07-18] MEDS ORDERED: ACET1TAB55 PO (15:47)
[2023-07-18] MEDS ORDERED: HOME MED LIST COMPLETE! XX SCH (16:05)
[2023-07-18 17:30] VITALS: BP 132/81; TEMP 98.1; O2SAT 96
[2023-07-18] MEDS ORDERED: NYSTATIN 100,000 UNITS/GM TOPICAL PWD 15GM TOP SCH (19:00)
[2023-07-18] MEDS: ASCORBIC ACID 500 MG TAB PO SCH (20:49)
[2023-07-18] MEDS: CARVedilol 12.5 MG TAB PO SCH (20:50)
[2023-07-18] MEDS: ASPIRIN 81MG CHEW TABLET PO SCH (20:50)
[2023-07-18] MEDS ORDERED: CLOBETASOL PROP 0.05% OINT 30 GM TOP SCH (21:00)
[2023-07-18] MEDS ORDERED: CitaloPRAM (CeleXA) 20 MG TAB PO SCH (21:00)
[2023-07-18] MEDS ORDERED: ATORVASTATIN 20 MG TAB PO SCH (21:00)
[2023-07-18] MEDS ORDERED: MONTELUKAST 10 MG TAB PO SCH (21:00)
[2023-07-18] MEDS ORDERED: MEMANTINE 5MG TABLET (NAMENDA) PO SCH (21:00)
[2023-07-18 21:48] VITALS: BP 139/62; TEMP 97.5; O2SAT 96
[2023-07-19 05:46] VITALS: BP 134/65; TEMP 97.9; O2SAT 94
[2023-07-19] MEDS ORDERED: ENOXAPARIN 40MG/0.4ML SYRINGE (J1650 PER 10MG) SC SCH (09:00)
[2023-07-19 09:16] VITALS: BP 134/65
[2023-07-19] MEDS: CARVedilol 12.5 MG TAB PO SCH (09:16)
[2023-07-19] MEDS: ASCORBIC ACID 500 MG TAB PO SCH (09:16)
[2023-07-19] MEDS: ASPIRIN 81MG CHEW TABLET PO SCH (09:16)
[2023-07-19] MEDS: ACETAMINOPHEN TAB 650MG DOSE (2X325MG) PO PRN (12:43)
[2023-07-22] MEDS ORDERED: CLOBETASOL PROPIONATE EMOLLIENT 0.05% CR 60 GM TOP SCH (09:00)
== END 2023-07-19 16:15 ==
LOC: M ED 09:33 → M ED INP 09:34 → ENRESERV 16:08 → M MS5PR 17:15
PROVIDERS: ADMIT Family Medicine; ATTEND Family Medicine
DX: S32.592A Other specified fracture of left pubis, initial encounter for closed fracture (principal); W18.30XA Fall on same level, unspecified, initial encounter; Y92.128 Other place in nursing home as the place of occurrence of the external cause; Y93.89 Activity, other specified; Y99.8 Other external cause status; G30.9 Alzheimer's disease, unspecified; F02.80 Dementia in other diseases classified elsewhere, unspecified severity, without behavioral disturbance, psychotic disturbance, mood disturbance, and anxiety; F41.9 Anxiety disorder, unspecified; I10 Essential (primary) hypertension; L40.9 Psoriasis, unspecified; Z88.5 Allergy status to narcotic agent; Z88.2 Allergy status to sulfonamides; Z79.899 Other long term (current) drug therapy; Z79.82 Long term (current) use of aspirin
CPT/HCPCS: 70450; 71045; 72110; 72125; 73521; 80048; 85025; 87486; 87581; 87633; 87798; 93005; 96372; 99285; G0378; J1650

== ENCOUNTER → 2023-08-10 | Outpatient (CLI) | payer MEDICARE, MEDICAID ==
[~2023-08-10] MED LIST changes: +ACET1TAB55 PO; -ASPIRIN 81MG ENTERIC TABLET PO SCH; +DEUC6TAB PO; +FLUC200T4 PO; -FLUCONAZOLE 100 MG TAB PO SCH; -FLUCONAZOLE 40MG/ML ORAL SUSP 35ML **DRAW UP EXACT DOSE PO SCH
== END ==
LOC: M SOG 07:56
PROVIDERS: ATTEND Orthopaedic Surgery
DX: R10.2 Pelvic and perineal pain (principal); S32.512A Fracture of superior rim of left pubis, initial encounter for closed fracture; X58.XXXA Exposure to other specified factors, initial encounter; Y92.9 Unspecified place or not applicable; Y93.9 Activity, unspecified; Y99.9 Unspecified external cause status; S32.592A Other specified fracture of left pubis, initial encounter for closed fracture

== ENCOUNTER → 2023-10-11 | Outpatient (CLI) | payer MEDICARE, MEDICAID | LOC: M SOG 08:06 | PROVIDERS: ATTEND Orthopaedic Surgery | DX: S32.592D Other specified fracture of left pubis, subsequent encounter for fracture with routine healing (principal) ==

== ENCOUNTER → 2024-03-11 | Outpatient (REF) | payer MEDICARE, MEDICAID ==
[~2024-03-11] MED LIST changes: +MEMA10TA PO; -MEMA10TA19 PO
== END ==
PROVIDERS: ATTEND Internal Medicine
DX: I10 Essential (primary) hypertension (principal)

== ENCOUNTER → 2024-05-15 | Outpatient (REF) | payer MEDICARE, MEDICAID ==
[~2024-05-15] MED LIST changes: -MULT200T7 PO; +MULT200T9 PO
[2024-05-15 10:47] LABS: HEMATOCRIT 40.4 % (36.0-47.0); HEMOGLOBIN 13.5 g/dl (12.0-15.5); MEAN CORPUSCULAR HEMOGLOBIN 30.7 pg (27.0-33.0); MEAN CORPUSCULAR HGB CONC 33.4 g/dl (32.0-36.5); MEAN CORPUSCULAR VOLUME 91.8 fl (80.0-96.0); PLATELET COUNT, AUTOMATED 284 10^3/uL (150-450); WHITE BLOOD COUNT 7.2 10^3/uL (4.0-10.0)
[2024-05-15 11:12] LABS: BLOOD UREA NITROGEN 16 MG/DL (9-23); CALCIUM LEVEL 9.9 MG/DL (8.3-10.6); CARBON DIOXIDE LEVEL 29 MMOL/L (20-31); CHLORIDE LEVEL 106 MMOL/L (98-107); CREATININE FOR GFR 0.48 MG/DL (0.55-1.30); GLOMERULAR FILTRATION RATE > 60.0 (>39); GLUCOSE, FASTING 102 MG/DL (74-106); POTASSIUM SERUM 4.2 MMOL/L (3.5-5.1); SODIUM LEVEL 141 MMOL/L (136-145)
== END ==
PROVIDERS: ATTEND Internal Medicine
DX: I95.9 Hypotension, unspecified (principal)

== ENCOUNTER → 2024-10-03 | Outpatient (REF) ==
[~2024-10-03] MED LIST changes: +FLUC-1 PO; -FLUC200T4 PO; +NYST1POW3 TOP; -NYST1POW9 TOP
== END ==
PROVIDERS: ATTEND Internal Medicine
DX: R05.9 Cough, unspecified (principal)

== ENCOUNTER → 2024-10-03 | Outpatient (REF) | payer MEDICARE, MEDICAID | PROVIDERS: ATTEND Internal Medicine | DX: R05.9 Cough, unspecified (principal); Z53.9 Procedure and treatment not carried out, unspecified reason ==

== ENCOUNTER → 2024-10-03 | Outpatient (REF) | payer MEDICARE, MEDICAID ==
[2024-10-03 15:22] LABS: HEMATOCRIT 41.7 % (36.0-47.0); HEMOGLOBIN 13.4 g/dl (12.0-15.5); MEAN CORPUSCULAR HEMOGLOBIN 29.5 pg (27.0-33.0); MEAN CORPUSCULAR HGB CONC 32.1 g/dl (32.0-36.5); MEAN CORPUSCULAR VOLUME 91.6 fl (80.0-96.0); PLATELET COUNT, AUTOMATED 316 10^3/uL (150-450); RED BLOOD COUNT 4.55 10^6/uL (4.00-5.40); WHITE BLOOD COUNT 10.7 10^3/uL (4.0-10.0)
[2024-10-03 15:52] LABS: BLOOD UREA NITROGEN 20 MG/DL (9-23); CALCIUM LEVEL 9.1 MG/DL (8.3-10.6); CARBON DIOXIDE LEVEL 28 MMOL/L (20-31); CHLORIDE LEVEL 112 MMOL/L (98-107); CREATININE FOR GFR 0.45 MG/DL (0.55-1.30); GLOMERULAR FILTRATION RATE > 60.0 (>39); GLUCOSE, FASTING 130 MG/DL (74-106); POTASSIUM SERUM 3.9 MMOL/L (3.5-5.1); SODIUM LEVEL 150 MMOL/L (136-145)
== END ==
PROVIDERS: ATTEND Nurse Practitioner Family
DX: R05.9 Cough, unspecified (principal); Z79.899 Other long term (current) drug therapy

== ENCOUNTER → 2024-10-04 | Outpatient (REF) | payer MEDICARE, MEDICAID ==
[2024-10-04 14:14] LABS: AMORPHOUS SEDIMENT MODERATE (NEGATIVE); APPEARANCE, URINE TURBID (CLEAR); BACTERIA, URINE AUTO NEGATIVE (NEGATIVE); BILIRUBIN, URINE AUTO NEGATIVE (NEGATIVE); BLOOD, URINE BLOOD NEGATIVE (NEGATIVE); COLOR, URINE YELLOW (YELLOW); GLUCOSE, URINE (UA) AUTO NEGATIVE (NEGATIVE); KETONE, URINE AUTO NEGATIVE (NEGATIVE); LEUKOCYTE ESTERASE, URINE AUTO NEGATIVE (NEGATIVE); MUCUS, URINE SMALL (NEGATIVE); NITRITE, URINE AUTO NEGATIVE (NEGATIVE); PROTEIN, URINE AUTO 2+ mg/dL (NEGATIVE); RBC, URINE AUTO 0 /HPF (0-3); SPECIFIC GRAVITY URINE AUTO 1.031 (1.002-1.035); SQUAMOUS EPITHELIAL CELL UR AU 3 /HPF (0-6); UROBILINOGEN, URINE AUTO 0.2 mg/dL (0.0-2.0); WBC, URINE AUTO 0 /HPF (0-3)
== END ==
PROVIDERS: ATTEND Internal Medicine
DX: R39.89 Other symptoms and signs involving the genitourinary system (principal)

== ENCOUNTER → 2024-10-08 | Outpatient (REF) | payer MEDICARE, MEDICAID ==
[2024-10-08 14:17] LABS: HEMOGLOBIN 12.2 g/dl (12.0-15.5); MEAN CORPUSCULAR HEMOGLOBIN 29.8 pg (27.0-33.0); MEAN CORPUSCULAR VOLUME 90.5 fl (80.0-96.0); PLATELET COUNT, AUTOMATED 335 10^3/uL (150-450); RED BLOOD COUNT 4.09 10^6/uL (4.00-5.40); WHITE BLOOD COUNT 12.2 10^3/uL (4.0-10.0)
[2024-10-08 14:43] LABS: BLOOD UREA NITROGEN 12 MG/DL (9-23); CARBON DIOXIDE LEVEL 28 MMOL/L (20-31); CHLORIDE LEVEL 103 MMOL/L (98-107); CREATININE FOR GFR 0.38 MG/DL (0.55-1.30); GLOMERULAR FILTRATION RATE > 60.0 (>39); GLUCOSE, FASTING 90 MG/DL (74-106); POTASSIUM SERUM 4.1 MMOL/L (3.5-5.1); SODIUM LEVEL 141 MMOL/L (136-145)
== END ==
PROVIDERS: ATTEND Nurse Practitioner Family
DX: D72.829 Elevated white blood cell count, unspecified (principal)

== ENCOUNTER → 2024-10-11 | Outpatient (REF) | payer MEDICARE, MEDICAID ==
[2024-10-11 07:26] LABS: HEMATOCRIT 37.3 % (36.0-47.0); HEMOGLOBIN 12.2 g/dl (12.0-15.5); MEAN CORPUSCULAR HEMOGLOBIN 29.3 pg (27.0-33.0); MEAN CORPUSCULAR HGB CONC 32.7 g/dl (32.0-36.5); MEAN CORPUSCULAR VOLUME 89.4 fl (80.0-96.0); PLATELET COUNT, AUTOMATED 344 10^3/uL (150-450); RED BLOOD COUNT 4.17 10^6/uL (4.00-5.40)
[2024-10-11 07:54] LABS: BLOOD UREA NITROGEN 17 MG/DL (9-23); CALCIUM LEVEL 9.2 MG/DL (8.3-10.6); CARBON DIOXIDE LEVEL 26 MMOL/L (20-31); CHLORIDE LEVEL 103 MMOL/L (98-107); GLOMERULAR FILTRATION RATE > 60.0 (>39); GLUCOSE, FASTING 98 MG/DL (74-106); POTASSIUM SERUM 3.7 MMOL/L (3.5-5.1); SODIUM LEVEL 142 MMOL/L (136-145)
== END ==
PROVIDERS: ATTEND Nurse Practitioner Family
DX: D72.829 Elevated white blood cell count, unspecified (principal)

== ENCOUNTER → 2024-10-14 | Outpatient (REF) | payer MEDICARE, MEDICAID ==
[2024-10-14 16:50] LABS: HEMATOCRIT 40.3 % (36.0-47.0); HEMOGLOBIN 13.2 g/dl (12.0-15.5); MEAN CORPUSCULAR HEMOGLOBIN 29.5 pg (27.0-33.0); MEAN CORPUSCULAR HGB CONC 32.8 g/dl (32.0-36.5); PLATELET COUNT, AUTOMATED 380 10^3/uL (150-450); RED BLOOD COUNT 4.48 10^6/uL (4.00-5.40); WHITE BLOOD COUNT 12.2 10^3/uL (4.0-10.0)
[2024-10-14 17:12] LABS: BLOOD UREA NITROGEN 21 MG/DL (9-23); CALCIUM LEVEL 9.3 MG/DL (8.3-10.6); CARBON DIOXIDE LEVEL 26 MMOL/L (20-31); CHLORIDE LEVEL 103 MMOL/L (98-107); CREATININE FOR GFR 0.49 MG/DL (0.55-1.30); GLOMERULAR FILTRATION RATE > 60.0 (>39); GLUCOSE, FASTING 144 MG/DL (74-106); POTASSIUM SERUM 4.1 MMOL/L (3.5-5.1); SODIUM LEVEL 141 MMOL/L (136-145)
== END ==
PROVIDERS: ATTEND Internal Medicine
DX: R05.9 Cough, unspecified (principal); Z79.899 Other long term (current) drug therapy

== ENCOUNTER → 2024-10-14 | Outpatient (REF) | payer MEDICARE, MEDICAID | PROVIDERS: ATTEND Physician Assistant | DX: R05.9 Cough, unspecified (principal) ==

== ENCOUNTER → 2024-10-16 | Outpatient (REF) | payer MEDICARE, MEDICAID ==
[2024-10-16 09:24] LABS: HEMOGLOBIN 13.2 g/dl (12.0-15.5); MEAN CORPUSCULAR HEMOGLOBIN 28.9 pg (27.0-33.0); MEAN CORPUSCULAR HGB CONC 32.2 g/dl (32.0-36.5); MEAN CORPUSCULAR VOLUME 89.9 fl (80.0-96.0); PLATELET COUNT, AUTOMATED 364 10^3/uL (150-450); RED BLOOD COUNT 4.56 10^6/uL (4.00-5.40); WHITE BLOOD COUNT 7.6 10^3/uL (4.0-10.0)
[2024-10-16 09:53] LABS: BLOOD UREA NITROGEN 19 MG/DL (9-23); CALCIUM LEVEL 9.7 MG/DL (8.3-10.6); CARBON DIOXIDE LEVEL 28 MMOL/L (20-31); CHLORIDE LEVEL 103 MMOL/L (98-107); CREATININE FOR GFR 0.43 MG/DL (0.55-1.30); GLOMERULAR FILTRATION RATE > 60.0 (>39); GLUCOSE, FASTING 109 MG/DL (74-106); SODIUM LEVEL 142 MMOL/L (136-145)
[2024-10-16 13:48] LABS: AMORPHOUS SEDIMENT MODERATE (NEGATIVE); APPEARANCE, URINE TURBID (CLEAR); BACTERIA, URINE AUTO NEGATIVE (NEGATIVE); BILIRUBIN, URINE AUTO NEGATIVE (NEGATIVE); BLOOD, URINE BLOOD NEGATIVE (NEGATIVE); COLOR, URINE YELLOW (YELLOW); GLUCOSE, URINE (UA) AUTO NEGATIVE (NEGATIVE); KETONE, URINE AUTO NEGATIVE (NEGATIVE); LEUKOCYTE ESTERASE, URINE AUTO NEGATIVE (NEGATIVE); MUCUS, URINE LARGE (NEGATIVE); NITRITE, URINE AUTO NEGATIVE (NEGATIVE); PROTEIN, URINE AUTO 1+ mg/dL (NEGATIVE); RBC, URINE AUTO 0 /HPF (0-3); SPECIFIC GRAVITY URINE AUTO 1.027 (1.002-1.035); SQUAMOUS EPITHELIAL CELL UR AU 0 /HPF (0-6); UROBILINOGEN, URINE AUTO 0.2 mg/dL (0.0-2.0); WBC, URINE AUTO 0 /HPF (0-3)
== END ==
PROVIDERS: ATTEND Internal Medicine
DX: D72.829 Elevated white blood cell count, unspecified (principal); R53.83 Other fatigue

== ENCOUNTER → 2024-11-11 | Outpatient (REF) | payer MEDICARE, MEDICAID | PROVIDERS: ATTEND Internal Medicine | DX: I10 Essential (primary) hypertension (principal) ==

== ENCOUNTER → 2025-03-03 | Outpatient (REF) | payer MEDICARE, MEDICAID ==
[~2025-03-03] MED LIST changes: -NYST-13 TOP; +NYST0.1C TOP
[2025-03-03 11:43] LABS: ALT/SGPT 28 U/L (7.0-40); AST/SGOT 22 U/L (<34)
== END ==
PROVIDERS: ATTEND Internal Medicine
DX: E78.5 Hyperlipidemia, unspecified (principal)

== ENCOUNTER → 2025-07-09 | Outpatient (REF) | payer MEDICARE, MEDICAID | PROVIDERS: ATTEND Internal Medicine | DX: I10 Essential (primary) hypertension (principal) ==